=== PATIENT | female | born 1935 | race Caucasian/White ===

== ENCOUNTER → 2016-11-09 | Outpatient (CLI) | payer MEDICARE, BC ==
[~2016-11-09] MED LIST: 00186-0372-20 IH; ADVAIR 100/28 DISKU1 IH; ADVAIR 100/28 DISKUS IH; ALEVE 220MG220 MG PO; ALLEGRA 180MG180 MG PO; ALLEGRA180 MG PO; APRESOLINE 25MG25 MG PO; ARMOUR THYROID120 MG PO; ASPIRIN 32325 MG/TAB PO; ASPIRIN 81M81 MG/TA2 PO; ASPIRIN E.C. 8181 MG PO; ATARAX 25MG25 MG/TAB PO; B COMPLEX VITAMIN; CLEOCIN HCL300 MG PO; CLINDAMYCIN HC300 MG PO; CLONAZEPAM PO; CYMBALTA 30MG30 MG PO; CYTOMEL 2525 MCG/TAB PO; CYTOMEL25 MCG PO; DEXILANT60 MG PO; DOXYCYCLINE 10100 MG PO; ESTRACE 1MG1 MG/TAB PO; FEXOFENADINE H180 MG PO; FLONASE NASAL S16 GM NS; FLONASE0.05 MG/AC NS; FLONASEALLERGY NS; GINKO; GLUCOSAMINE; GLUCOSAMINE PO; GLUCOSAMINE SU500 M2 PO; GLUCOSAMINE500 M1 PO; GLUCOSAMINE500 M2 PO; KLONOPIN 0.5MG0.5 MG PO; KLONOPIN WAFE0.25 MG PO; KLONOPIN WAFER0.5 MG PO; LIPITOR 80MG80 MG PO; MASON NATURAL1000 M1 PO; METOPROLOL SUCC50 M2 PO; MIRALAX PA17 GM/Dose PO; MUCINEX 60600 MG/TAB PO; MULTI VITAMINS1 TAB PO; MULTIPLE VITAMI1 CAP PO; MULTIVITAMIN FO1 CAP PO; MVI; PLAVIX 75MG TAB75 MG PO; PREDNISONE20 MG PO; PREMARIN .3MG0.3 MG PO; PREMARIN 0.60.625 MG PO; PREMPRO 0.625/21 TAB PO; PREVACID 30MG30 M1 PO; PREVACID 30MG30 MG PO; PREVACID SOLUTA30 M2; PROBIOTIC-MAJOR PO; PROTONIX 40MG T40 MG PO; PROVENTIL0.09 MG/A1 IH; PYCNOGENOL; PYCNOGENOL PO; REFRESH PM OP; REMERON 15M15 MG/TA1; REMERON 15M15 MG/TA1 PO; REMERON 15M15 MG/TAB PO; REMERON SOLTAB15 MG PO; REMERON15 MG PO; RT ADVAIR 128 DISKUS; RT ADVAIR 128 DISKUS IH; SINGULAIR 110 MG/TAB PO; SINGULAIR10 MG PO; ST. JOSEPH81 M1 PO; SYNTHROID0.075 MG/T PO; SYNTHROID0.3 MG PO; SYSTANE LUBRICAN5 ML OP; TETRACYCLINE H500 MG PO; THYROID; THYROID PO; TOPROL XL 25MG25 MG PO; TOPROL XL 50MG50 MG PO; TOPROL XL100 MG PO; TOPROL XL25 MG PO; UBIQUINOL50 MG PO; VENTOLIN0.09 MG IH; VITAMIN B-6100 MG PO; VITAMIN D31000 IU PO; XOPENEX HF0.045 MG/A IH; ZYRTEC 10MG10 MG PO; [UNRECOGNIZED DRUG - OTHER]; [UNRECOGNIZED DRUG - OTHER]; [UNRECOGNIZED DRUG - OTHER]; [UNRECOGNIZED DRUG - OTHER] PO; fish oil; vitamin d
== END ==
LOC: COL.VAS 07:49
DX: G31.9 Degenerative disease of nervous system, unspecified (principal); I77.89 Other specified disorders of arteries and arterioles; R42 Dizziness and giddiness; R55 Syncope and collapse
CPT/HCPCS: A9585

== ENCOUNTER 2017-01-31 11:57 | Emergency (ER) | payer MEDICARE, BC ==
[~2017-01-31] VITALS: Ht 154.9 cm; Wt 65.0 kg
[~2017-01-31 11:57] MED LIST changes: -00186-0372-20 IH; -ASPIRIN E.C. 8181 MG PO; -FLONASEALLERGY NS; -KLONOPIN WAFE0.25 MG PO; -LIPITOR 80MG80 MG PO; -PLAVIX 75MG TAB75 MG PO; -XOPENEX HF0.045 MG/A IH
[2017-01-31 11:59] VITALS: TEMP 97.8
[2017-01-31] MEDS ORDERED: ASPIRIN E.C. 8181 MG PO (12:26)
[2017-01-31] MEDS ORDERED: LIPITOR 80MG80 MG PO (12:27)
[2017-01-31] MEDS ORDERED: TOPROL XL100 MG PO (12:27)
[2017-01-31] MEDS ORDERED: PLAVIX 75MG TAB75 MG PO (12:27)
[2017-01-31] MEDS ORDERED: 00186-0372-20 IH (12:28)
[2017-01-31] MEDS ORDERED: KLONOPIN WAFE0.25 MG PO (12:29)
[2017-01-31] MEDS ORDERED: CYMBALTA 30MG30 MG PO (12:31)
[2017-01-31] MEDS ORDERED: FLONASEALLERGY NS (12:31)
[2017-01-31 12:32] LABS: BASO # 0.1 (0.0-0.2); EOS # 0.5 (0.0-0.7); EOS % 5.2 % (0-4.0); GRAN # 5.4 (1.4-6.5); GRAN % 57.9 % (42.2-75.2); HEMATOCRIT 37.3 % (37.0-47.0); HEMOGLOBIN 12.8 g/dl (12.5-16.0); LYMPH # 2.2 (1.2-3.4); LYMPH % 23.6 % (20.0-51.0); MEAN CELL VOLUME 83 fl (80.0-100.0); MEAN CORPUSCULAR HEMOGLOBIN 29 pg (27.0-31.0); MEAN CORPUSCULAR HGB CONC 34 g/dl (33.0-37.0); MEAN PLATELET VOLUME 9.1 fl (7.4-10.4); MONO # 1.1 (0.1-0.6); MONO % 11.9 % (1.7-9.3); PLATELET COUNT 360 K/mm3 (130-400); RED BLOOD COUNT 4.47 M/mm3 (4.10-5.30); REDCELL DISTRIBUTION WIDTH-CV 13.8 % (11.5-14.5); WHITE BLOOD COUNT 9.4 K/mm3 (4.8-10.8)
[2017-01-31] MEDS ORDERED: XOPENEX HF0.045 MG/A IH (12:33)
[2017-01-31 12:55] LABS: PROTHROMBIN TIME 11.2 SECONDS (9.7-12.8)
[2017-01-31] MEDS ORDERED: REMERON 15M15 MG/TA1 PO (13:01)
[2017-01-31] MEDS ORDERED: SYNTHROID0.075 MG/T PO (13:01)
[2017-01-31] MEDS ORDERED: SINGULAIR 110 MG/TAB PO (13:02)
[2017-01-31] MEDS ORDERED: PROTONIX 40MG T40 MG PO (13:02)
[2017-01-31] MEDS ORDERED: PROVENTIL0.09 MG/A1 IH (13:03)
[2017-01-31 13:14] LABS: ADJUSTED CALCIUM 9.1 mg/dL (8.4-10.2); BILIRUBIN,TOTAL 0.6 mg/dL (0.0-1.0); CALCIUM 9.1 mg/dL (8.4-10.2); CREATININE, serum 0.71 mg/dL (0.52-1.25); POTASSIUM 4.6 mmol/L (3.4-5.0); TOTAL PROTEIN 6.6 gm/dL (6.4-8.2)
[2017-01-31 13:15] LABS: PARTIAL THROMBOPLASTIN TIME 33.8 SECONDS (26.0-37.0)
[2017-01-31 13:32] LABS: TROPONIN-I 1.51 ng/mL (0.000-0.034)
[2017-01-31 18:30] VITALS: BP 114/59; PULSE 61
== END 2017-01-31 18:33 | disposition short-term general hospital (02) ==
LOC: COL.ER 11:57
PROVIDERS: Emergency Medicine
DX: I25.10 Atherosclerotic heart disease of native coronary artery without angina pectoris (principal); I25.2 Old myocardial infarction; R55 Syncope and collapse; J45.909 Unspecified asthma, uncomplicated; I10 Essential (primary) hypertension; E03.9 Hypothyroidism, unspecified; Z90.49 Acquired absence of other specified parts of digestive tract; Z90.710 Acquired absence of both cervix and uterus; Z95.828 Presence of other vascular implants and grafts; Z79.82 Long term (current) use of aspirin

== ENCOUNTER 2017-02-10 20:23 | Emergency (ER) | payer MEDICARE, BC ==
[~2017-02-10] VITALS: Ht 154.9 cm; Wt 63.2 kg
[~2017-02-10 20:23] MED LIST changes: +00186-0372-20 IH; +ASPIRIN E.C. 8181 MG PO; +FLONASEALLERGY NS; +KLONOPIN WAFE0.25 MG PO; +LIPITOR 80MG80 MG PO; +PLAVIX 75MG TAB75 MG PO; +XOPENEX HF0.045 MG/A IH
[2017-02-10 20:25] VITALS: BP 179/75; TEMP 97.5
[2017-02-10 21:04] LABS: BASO % 0.5 % (0.0-2.0); EOS # 0.3 (0.0-0.7); EOS % 3.4 % (0-4.0); GRAN # 6.3 (1.4-6.5); GRAN % 72.4 % (42.2-75.2); HEMATOCRIT 37.3 % (37.0-47.0); HEMOGLOBIN 12.4 g/dl (12.5-16.0); LYMPH # 1.1 (1.2-3.4); LYMPH % 13.1 % (20.0-51.0); MEAN CELL VOLUME 84 fl (80.0-100.0); MEAN CORPUSCULAR HEMOGLOBIN 28 pg (27.0-31.0); MEAN CORPUSCULAR HGB CONC 33 g/dl (33.0-37.0); MEAN PLATELET VOLUME 8.9 fl (7.4-10.4); MONO # 0.9 (0.1-0.6); MONO % 10.3 % (1.7-9.3); PLATELET COUNT 319 K/mm3 (130-400); RED BLOOD COUNT 4.45 M/mm3 (4.10-5.30); REDCELL DISTRIBUTION WIDTH-CV 13.5 % (11.5-14.5); WHITE BLOOD COUNT 8.7 K/mm3 (4.8-10.8)
[2017-02-10] MEDS ORDERED: PREDNISONE20 MG PO (21:40)
[2017-02-10] MEDS ORDERED: PEPCID 20MG TAB20 MG PO (21:40)
[2017-02-10 21:55] VITALS: PULSE 70
== END 2017-02-10 21:56 | disposition home or self-care (01) ==
LOC: COL.ER 20:23
PROVIDERS: Emergency Medicine
DX: L50.9 Urticaria, unspecified (principal); L30.9 Dermatitis, unspecified; I25.10 Atherosclerotic heart disease of native coronary artery without angina pectoris; I25.2 Old myocardial infarction; J45.909 Unspecified asthma, uncomplicated; K21.9 Gastro-esophageal reflux disease without esophagitis; E03.9 Hypothyroidism, unspecified; Z79.82 Long term (current) use of aspirin
CPT/HCPCS: J1200; J2930; J7050; J7512

== ENCOUNTER 2017-05-03 15:24 | Outpatient (RCR) | payer MEDICARE, BC ==
[~2017-05-03 15:24] MED LIST changes: +PEPCID 20MG TAB20 MG PO
== END 2017-05-04 | disposition home or self-care (01) ==
LOC: COL.CR
DX: I21.3 ST elevation (STEMI) myocardial infarction of unspecified site (principal); Z95.5 Presence of coronary angioplasty implant and graft

== ENCOUNTER → 2017-10-04 | Outpatient (CLI) | payer MEDICARE, BC | LOC: COL.VAS 11:05 | DX: M71.22 Synovial cyst of popliteal space [Baker], left knee (principal); M79.89 Other specified soft tissue disorders ==

== ENCOUNTER 2017-12-25 15:07 | Outpatient (RCR) | payer SELFPAY | END 2018-01-02 | disposition home or self-care (01) | LOC: COL.CR | DX: Z02.9 Encounter for administrative examinations, unspecified (principal) ==

== ENCOUNTER 2018-03-02 13:44 | Outpatient (RCR) | payer SELFPAY | END 2018-04-03 | disposition home or self-care (01) | LOC: COL.CR | DX: Z02.9 Encounter for administrative examinations, unspecified (principal) ==

== ENCOUNTER 2018-05-17 12:44 | Day surgery (SDC) | payer MEDICARE, BC ==
[~2018-05-17] VITALS: Ht 155 cm; Wt 67.6 kg
[2018-05-17] VITALS (11 sets, daily range): BP systolic 116–143; BP diastolic 62–80; PULSE 58–76; TEMP 97.6–98.4
[2018-05-17 13:14] LABS: HEMATOCRIT 37.7 % (37.0-47.0); HEMOGLOBIN 12.4 g/dl (12.5-16.0); MEAN CELL VOLUME 83 fl (80.0-100.0); MEAN CORPUSCULAR HEMOGLOBIN 27 pg (27.0-31.0); MEAN CORPUSCULAR HGB CONC 33 g/dl (33.0-37.0); MEAN PLATELET VOLUME 8.4 fl (7.4-10.4); PLATELET COUNT 324 K/mm3 (130-400); RED BLOOD COUNT 4.55 M/mm3 (4.10-5.30); REDCELL DISTRIBUTION WIDTH-CV 14.7 % (11.5-14.5)
[2018-05-17 13:19] LABS: INR 1.1 (0.8-3.0); PROTHROMBIN TIME 12.1 SECONDS (9.7-12.8)
[2018-05-17] MEDS ORDERED: IMDUR 30MG30 MG/TAB PO (13:23)
[2018-05-17 13:33] LABS: CALCIUM 9.5 mg/dL (8.4-10.2); CREATININE, serum 0.67 mg/dL (0.52-1.25); POTASSIUM 4.3 mmol/L (3.4-5.0)
[2018-05-17] MEDS ORDERED: ISOSORBIDE MON120 MG PO (15:17)
[2018-05-17] MEDS ORDERED: TOPROL XL 50MG50 MG PO (15:38)
== END 2018-05-17 19:38 | disposition home or self-care (01) ==
LOC: COL.CAR 12:44
PROVIDERS: Internal Medicine Cardiovascular Disease
DX: I25.10 Atherosclerotic heart disease of native coronary artery without angina pectoris (principal); I10 Essential (primary) hypertension; I34.0 Nonrheumatic mitral (valve) insufficiency; I25.2 Old myocardial infarction; D64.9 Anemia, unspecified; J45.909 Unspecified asthma, uncomplicated; E03.9 Hypothyroidism, unspecified; K58.9 Irritable bowel syndrome, unspecified; G62.9 Polyneuropathy, unspecified; G25.81 Restless legs syndrome; B06.9 Rubella without complication; Z90.710 Acquired absence of both cervix and uterus; Z90.49 Acquired absence of other specified parts of digestive tract; Z88.0 Allergy status to penicillin; Z88.2 Allergy status to sulfonamides; Z91.040 Latex allergy status; Z91.038 Other insect allergy status; Z88.8 Allergy status to other drugs, medicaments and biological substances; Z79.82 Long term (current) use of aspirin; Z79.02 Long term (current) use of antithrombotics/antiplatelets; Z79.51 Long term (current) use of inhaled steroids; Z82.49 Family history of ischemic heart disease and other diseases of the circulatory system; Z83.3 Family history of diabetes mellitus; Z82.61 Family history of arthritis; Z82.5 Family history of asthma and other chronic lower respiratory diseases
CPT/HCPCS: J0153; J1644; J3010; Q9967

== ENCOUNTER 2018-06-20 14:15 | Outpatient (RCR) | payer SELFPAY ==
[~2018-06-20 14:15] MED LIST changes: +IMDUR 30MG30 MG/TAB PO; +ISOSORBIDE MON120 MG PO
== END 2018-07-08 | disposition home or self-care (01) ==
LOC: COL.CR
DX: Z02.89 Encounter for other administrative examinations (principal)

== ENCOUNTER 2018-11-14 14:59 | Outpatient (RCR) | payer SELFPAY | END 2018-11-18 | disposition home or self-care (01) | LOC: COL.CR | DX: Z02.89 Encounter for other administrative examinations (principal) ==

== ENCOUNTER 2019-01-09 14:59 | Outpatient (RCR) | payer SELFPAY | END 2019-02-17 | disposition home or self-care (01) | LOC: COL.CR | DX: Z02.89 Encounter for other administrative examinations (principal) ==

== ENCOUNTER 2019-05-29 15:20 | Outpatient (RCR) | payer SELFPAY | END 2019-06-09 | disposition home or self-care (01) | LOC: COL.CR | DX: Z02.89 Encounter for other administrative examinations (principal) ==

== ENCOUNTER → 2019-06-27 | Outpatient (CLI) | payer MEDICARE, BC | LOC: MC.RAD 11:00 | DX: Z12.31 Encounter for screening mammogram for malignant neoplasm of breast (principal) ==

== ENCOUNTER → 2019-09-06 | Outpatient (CLI) | payer MEDICARE, BC | LOC: COL.RAD 08:30 | DX: K44.9 Diaphragmatic hernia without obstruction or gangrene (principal); M47.814 Spondylosis without myelopathy or radiculopathy, thoracic region; M41.84 Other forms of scoliosis, thoracic region; M43.8X4 Other specified deforming dorsopathies, thoracic region ==

== ENCOUNTER 2020-02-03 13:27 | Inpatient (IN) | payer MEDICARE, BC ==
[~2020-02-03] VITALS: Ht 154.9 cm; Wt 69.1 kg
[2020-02-03 14:22] LABS: INR 1.1 (0.8-3.0); PROTHROMBIN TIME 12.8 SECONDS (9.7-12.8)
[2020-02-03 14:25] LABS: PARTIAL THROMBOPLASTIN TIME 31.3 SECONDS (26.0-37.0)
[2020-02-03 14:27] LABS: ALANINE AMINOTRANSFERASE 24 U/L (4-34); ALBUMIN 4.2 gm/dL (3.5-5.0); ALKALINE PHOSPHATASE 63 U/L (50-136); ANION GAP 10 mmol/L (7-16); AST,SGOT 35 U/L (15-37); BILIRUBIN,TOTAL 0.3 mg/dL (0.0-1.0); BLOOD UREA NITROGEN 61 mg/dL (7-17); CALCIUM 8.9 mg/dL (8.4-10.2); CARBON DIOXIDE 17 mmol/L (22-30); CHLORIDE 105 mmol/L (98-107); CREATININE, serum 0.57 (0.52-1.25); GLUCOSE 116 mg/dL (74-106); LIPASE 208 U/L (23-300); POTASSIUM 5.3 mmol/L (3.4-5.0); SODIUM 133 mmol/L (137-145); TOTAL PROTEIN 6.6 gm/dL (6.4-8.2)
[2020-02-03 14:49] LABS: TROPONIN-I < 0.012 ng/mL (0.000-0.035)
[2020-02-03 14:52] LABS: BASO # 0.1 (0.0-0.2); BASO % 0.4 % (0.0-2.0); EOS % 0.2 % (0-4.0); GRAN # 10.2 (1.4-6.5); GRAN % 85.5 % (42.2-75.2); LYMPH # 0.8 (1.2-3.4); LYMPH % 7.1 % (20.0-51.0); MEAN CELL VOLUME 87 fl (80.0-100.0); MEAN CORPUSCULAR HEMOGLOBIN 29 pg (27.0-31.0); MEAN CORPUSCULAR HGB CONC 33 g/dl (33.0-37.0); MEAN PLATELET VOLUME 9.6 fl (7.4-10.4); MONO # 0.8 (0.1-0.6); MONO % 6.4 % (1.7-9.3); PLATELET COUNT 331 K/mm3 (130-400); RED BLOOD COUNT 4.19 M/mm3 (4.10-5.30); REDCELL DISTRIBUTION WIDTH-CV 15.6 % (11.5-14.5)
[2020-02-03 14:53] LABS: HEMATOCRIT 36.4 % (37.0-47.0)
[2020-02-03 15:54] LABS: COLLECTION METHOD CLEAN CATCH
[2020-02-03 16:01] LABS: PH 6 (5-8); SQUAMOUS EPITHELIAL 0-2 /hpf; URINE APPEARANCE Clear; URINE BACTERIA None Seen /hpf; URINE BILIRUBIN Negative (NEGATIVE); URINE BLOOD Negative (NEGATIVE); URINE COLOR Yellow; URINE GLUCOSE Negative (NEGATIVE); URINE KETONE Negative (NEGATIVE); URINE LEUKOCYTE ESTERASE Negative (NEGATIVE); URINE NITRATE Negative (NEGATIVE); URINE PROTEIN(semi-quant) Negative (NEGATIVE); URINE RBC None Seen /hpf; URINE UROBILINOGEN Negative (NEGATIVE)
[2020-02-03 19:52] VITALS: BP 123/56; PULSE 81; TEMP 97.7
[2020-02-04] VITALS (11 sets, daily range): BP systolic 92–130; BP diastolic 43–61; PULSE 70–82; TEMP 97.3–98.5
[2020-02-04 09:05] LABS: BASO # 0.1 (0.0-0.2); BASO % 0.6 % (0.0-2.0); EOS # 0.2 (0.0-0.7); EOS % 1.6 % (0-4.0); GRAN # 6.7 (1.4-6.5); GRAN % 60.8 % (42.2-75.2); HEMOGLOBIN 10.2 g/dl (12.5-16.0); LYMPH # 2.8 (1.2-3.4); LYMPH % 25.7 % (20.0-51.0); MEAN CELL VOLUME 90 fl (80.0-100.0); MEAN CORPUSCULAR HEMOGLOBIN 29 pg (27.0-31.0); MEAN CORPUSCULAR HGB CONC 32 g/dl (33.0-37.0); MEAN PLATELET VOLUME 9.6 fl (7.4-10.4); MONO # 1.2 (0.1-0.6); MONO % 10.9 % (1.7-9.3); PLATELET COUNT 297 K/mm3 (130-400); RED BLOOD COUNT 3.51 M/mm3 (4.10-5.30); REDCELL DISTRIBUTION WIDTH-CV 16.1 % (11.5-14.5)
[2020-02-04 09:08] LABS: HEMATOCRIT 31.6 % (37.0-47.0)
[2020-02-04 09:20] LABS: CALCIUM 8.3 mg/dL (8.4-10.2); CREATININE, serum 0.58 (0.52-1.25)
[2020-02-04 18:36] LABS: HEMATOCRIT 25.5 % (37.0-47.0); HEMOGLOBIN 8.2 g/dl (12.5-16.0)
[2020-02-05] VITALS (11 sets, daily range): BP systolic 100–123; BP diastolic 32–52; PULSE 50–91; TEMP 97.3–98.3
[2020-02-05 07:21] LABS: BASO # 0.1 (0.0-0.2); BASO % 0.6 % (0.0-2.0); EOS # 0.2 (0.0-0.7); EOS % 2.4 % (0-4.0); GRAN # 6.1 (1.4-6.5); GRAN % 72.5 % (42.2-75.2); HEMATOCRIT 26.7 % (37.0-47.0); HEMOGLOBIN 8.5 g/dl (12.5-16.0); LYMPH # 1.4 (1.2-3.4); LYMPH % 16.3 % (20.0-51.0); MEAN CELL VOLUME 90 fl (80.0-100.0); MEAN CORPUSCULAR HEMOGLOBIN 29 pg (27.0-31.0); MEAN CORPUSCULAR HGB CONC 32 g/dl (33.0-37.0); MEAN PLATELET VOLUME 9.2 fl (7.4-10.4); MONO # 0.6 (0.1-0.6); MONO % 7.7 % (1.7-9.3); PLATELET COUNT 240 K/mm3 (130-400); RED BLOOD COUNT 2.98 M/mm3 (4.10-5.30); REDCELL DISTRIBUTION WIDTH-CV 15.9 % (11.5-14.5)
[2020-02-05 07:38] LABS: CALCIUM 8.3 mg/dL (8.4-10.2); CREATININE, serum 0.59 (0.52-1.25); POTASSIUM 3.7 mmol/L (3.4-5.0)
[2020-02-05 17:48] LABS: HEMATOCRIT 23.4 % (37.0-47.0); HEMOGLOBIN 7.5 g/dl (12.5-16.0)
[2020-02-06 03:15] VITALS: BP 115/52; PULSE 71; TEMP 98
[2020-02-06 07:32] VITALS: BP 135/54; PULSE 77; TEMP 98.2
[2020-02-06 08:23] LABS: BASO # 0.1 (0.0-0.2); BASO % 0.8 % (0.0-2.0); EOS # 0.2 (0.0-0.7); EOS % 3.9 % (0-4.0); GRAN % 64.7 % (42.2-75.2); LYMPH # 1.3 (1.2-3.4); LYMPH % 20.1 % (20.0-51.0); MEAN CELL VOLUME 89 fl (80.0-100.0); MEAN CORPUSCULAR HGB CONC 32 g/dl (33.0-37.0); MEAN PLATELET VOLUME 9.4 fl (7.4-10.4); MONO # 0.6 (0.1-0.6); PLATELET COUNT 210 K/mm3 (130-400); RED BLOOD COUNT 2.76 M/mm3 (4.10-5.30); REDCELL DISTRIBUTION WIDTH-CV 15.9 % (11.5-14.5)
[2020-02-06 08:33] LABS: HEMATOCRIT 24.5 % (37.0-47.0); HEMOGLOBIN 7.9 g/dl (12.5-16.0); MEAN CORPUSCULAR HEMOGLOBIN 29 pg (27.0-31.0)
[2020-02-06 08:47] LABS: CALCIUM 8.2 mg/dL (8.4-10.2); CREATININE, serum 0.72 (0.52-1.25); POTASSIUM 3.9 mmol/L (3.4-5.0)
[2020-02-06 13:15] VITALS: BP 136/81; PULSE 70; TEMP 97.3
== END 2020-02-06 13:00 | disposition home or self-care (01) | DRG 378 ==
LOC: COL.ER 13:27 → SURG 16:15
PROVIDERS: Emergency Medicine; Internal Medicine Gastroenterology; Physician Assistant; ADMIT Hospitalist
PROC: 0DJ08ZZ Inspection of Upper Intestinal Tract, Via Natural or Artificial Opening Endoscopic (ICD-10-PCS; principal; 2020-02-04 15:30)
PROC: 0DBK8ZZ Excision of Ascending Colon, Via Natural or Artificial Opening Endoscopic (ICD-10-PCS; 2020-02-05)
PROC: 0DBL8ZZ Excision of Transverse Colon, Via Natural or Artificial Opening Endoscopic (ICD-10-PCS; 2020-02-05)
DX: K25.4 Chronic or unspecified gastric ulcer with hemorrhage (principal); D62 Acute posthemorrhagic anemia; E87.2 Acidosis; E87.5 Hyperkalemia; E87.8 Other disorders of electrolyte and fluid balance, not elsewhere classified; I25.10 Atherosclerotic heart disease of native coronary artery without angina pectoris; M48.00 Spinal stenosis, site unspecified; J45.909 Unspecified asthma, uncomplicated; I87.2 Venous insufficiency (chronic) (peripheral); E78.5 Hyperlipidemia, unspecified; E03.9 Hypothyroidism, unspecified; K21.9 Gastro-esophageal reflux disease without esophagitis; F32.9 Major depressive disorder, single episode, unspecified; J44.9 Chronic obstructive pulmonary disease, unspecified; K57.30 Diverticulosis of large intestine without perforation or abscess without bleeding; K29.70 Gastritis, unspecified, without bleeding; K63.5 Polyp of colon; K44.9 Diaphragmatic hernia without obstruction or gangrene; Z98.1 Arthrodesis status; Z90.710 Acquired absence of both cervix and uterus; Z90.49 Acquired absence of other specified parts of digestive tract; Z95.818 Presence of other cardiac implants and grafts; Z79.82 Long term (current) use of aspirin
CPT/HCPCS: 99222-AI; 99232-AI; 99239; C9113; J2405; J2704; J7030; Q9967

== ENCOUNTER → 2020-04-14 | Outpatient (CLI) | payer MEDICARE, BC | LOC: COL.RAD 14:15 | DX: M48.07 Spinal stenosis, lumbosacral region (principal); G62.9 Polyneuropathy, unspecified; M50.30 Other cervical disc degeneration, unspecified cervical region; M81.0 Age-related osteoporosis without current pathological fracture; M41.86 Other forms of scoliosis, lumbar region; Z98.1 Arthrodesis status ==

== ENCOUNTER → 2020-06-23 | Outpatient (CLI) | payer MEDICARE, BC | LOC: MHCPAIN 13:57 | DX: M47.817 Spondylosis without myelopathy or radiculopathy, lumbosacral region (principal); M96.1 Postlaminectomy syndrome, not elsewhere classified; M54.16 Radiculopathy, lumbar region; M53.3 Sacrococcygeal disorders, not elsewhere classified; G89.29 Other chronic pain | CPT/HCPCS: G0463 ==

== ENCOUNTER → 2020-07-15 | Outpatient (CLI) | payer MEDICARE, BC ==
[~2020-07-15] MED LIST changes: +COZAAR 50MG50 MG/TAB PO; +DULCOLAX STOOL100 MG PO; +LEADER CLE17 GM/Dose PO; +NEURONTIN300 MG/CAP PO; +NORCO 325 MG-7.1 TAB PO; +PERCOCET 325 MG1 TA2 PO; +ROXICODONE 55 MG/TAB PO; +SYNTHROID0.05 MG/TA PO; +TYLENOL 325MG325 MG PO; +VTAMINC250TA PO
== END ==
LOC: COL.RAD 18:22
DX: M50.30 Other cervical disc degeneration, unspecified cervical region (principal); G95.19 Other vascular myelopathies; G62.9 Polyneuropathy, unspecified; R26.89 Other abnormalities of gait and mobility

== ENCOUNTER → 2020-08-03 | Outpatient (CLI) | payer MEDICARE, BC | LOC: MHCPAIN 11:25 | DX: M47.817 Spondylosis without myelopathy or radiculopathy, lumbosacral region (principal); M96.1 Postlaminectomy syndrome, not elsewhere classified; M54.16 Radiculopathy, lumbar region | CPT/HCPCS: G0463; J1100; Q9967 ==

== ENCOUNTER → 2020-08-19 | Outpatient (CLI) | payer MEDICARE, BC | LOC: MHCPAIN 13:36 | DX: M47.816 Spondylosis without myelopathy or radiculopathy, lumbar region (principal); M54.5 Low back pain; M96.1 Postlaminectomy syndrome, not elsewhere classified; G89.29 Other chronic pain | CPT/HCPCS: G0463 ==

== ENCOUNTER 2020-08-20 14:45 | Outpatient (RCR) | payer MEDICARE, BC ==
[~2020-08-20 14:45] MED LIST changes: -COZAAR 50MG50 MG/TAB PO; -DULCOLAX STOOL100 MG PO; -LEADER CLE17 GM/Dose PO; -NEURONTIN300 MG/CAP PO; -NORCO 325 MG-7.1 TAB PO; -PERCOCET 325 MG1 TA2 PO; -ROXICODONE 55 MG/TAB PO; -SYNTHROID0.05 MG/TA PO; -TYLENOL 325MG325 MG PO; -VTAMINC250TA PO
== END 2020-08-25 | disposition home or self-care (01) ==
LOC: WSPT
DX: G62.9 Polyneuropathy, unspecified (principal); M48.07 Spinal stenosis, lumbosacral region; G95.19 Other vascular myelopathies

== ENCOUNTER → 2020-08-27 | Outpatient (CLI) | payer MEDICARE, BC ==
[~2020-08-27] MED LIST changes: +COZAAR 50MG50 MG/TAB PO; +DULCOLAX STOOL100 MG PO; +LEADER CLE17 GM/Dose PO; +NEURONTIN300 MG/CAP PO; +NORCO 325 MG-7.1 TAB PO; +PERCOCET 325 MG1 TA2 PO; +ROXICODONE 55 MG/TAB PO; +SYNTHROID0.05 MG/TA PO; +TYLENOL 325MG325 MG PO; +VTAMINC250TA PO
== END ==
LOC: MHCPAIN 08:25
DX: M47.817 Spondylosis without myelopathy or radiculopathy, lumbosacral region (principal); M54.16 Radiculopathy, lumbar region
CPT/HCPCS: J1100; Q9967

== ENCOUNTER → 2020-09-07 | Outpatient (CLI) | payer MEDICARE, BC | LOC: MHCPAIN 10:19 | DX: M47.816 Spondylosis without myelopathy or radiculopathy, lumbar region (principal); M96.1 Postlaminectomy syndrome, not elsewhere classified; M54.16 Radiculopathy, lumbar region; G89.29 Other chronic pain | CPT/HCPCS: G0463 ==

== ENCOUNTER → 2020-09-22 | Outpatient (CLI) | payer MEDICARE, BC | LOC: MHCPAIN 11:17 | DX: M47.816 Spondylosis without myelopathy or radiculopathy, lumbar region (principal); M96.1 Postlaminectomy syndrome, not elsewhere classified; M53.3 Sacrococcygeal disorders, not elsewhere classified; G89.29 Other chronic pain | CPT/HCPCS: G0463 ==

== ENCOUNTER 2020-11-05 09:00 | Outpatient (RCR) | payer MEDICARE, BC ==
[~2020-11-05 09:00] MED LIST changes: -COZAAR 50MG50 MG/TAB PO; -DULCOLAX STOOL100 MG PO; -LEADER CLE17 GM/Dose PO; -NEURONTIN300 MG/CAP PO; -NORCO 325 MG-7.1 TAB PO; -PERCOCET 325 MG1 TA2 PO; -ROXICODONE 55 MG/TAB PO; -SYNTHROID0.05 MG/TA PO; -TYLENOL 325MG325 MG PO; -VTAMINC250TA PO
== END 2020-11-17 08:40 | disposition home or self-care (01) ==
LOC: WSPT 09:00
DX: M48.00 Spinal stenosis, site unspecified (principal); G62.9 Polyneuropathy, unspecified

== ENCOUNTER 2020-12-10 05:00 | Day surgery (SDC) | payer MEDICARE, BC ==
[~2020-12-10] VITALS: Ht 154.9 cm; Wt 68.2 kg
[2020-12-10] VITALS (12 sets, daily range): BP systolic 124–144; BP diastolic 52–115; PULSE 72–78; TEMP 97.6–98.1
[2020-12-10] MEDS ORDERED: IMDUR 30MG30 MG/TAB PO (05:58)
[2020-12-10] MEDS ORDERED: SYNTHROID0.05 MG/TA PO (05:59)
[2020-12-10] MEDS ORDERED: TOPROL XL 25MG25 MG PO (06:00)
[2020-12-10] MEDS ORDERED: COZAAR 50MG50 MG/TAB PO (06:01)
[2020-12-10] MEDS ORDERED: NEURONTIN300 MG/CAP PO (06:02)
[2020-12-10] MEDS ORDERED: VTAMINC250TA PO (06:03)
--- NOTE | 2020-12-10 10:37 | NUR ---
PT TO ROOM 332 PER BED WITH REPORT FROM EBONY NORRIS PACU @1010. PT IS DROWSEY BUT AWAKENS TO VERBAL. VSS, LUNGS CTA, BOWEL SOUNDS PRESENT. LEFT KNEE DRESSING CDI WITH OCCLUSIVE SHANA WRAP OVER INCISION. SCDS PLACED BILATERALLY. PEDAL PULSES PAPABLE BILATERALLY. IV TO PUMP PER ORDERS. DAUGHTER AT BEDSIDE. CALL LIGHT IN REACH.
--- NOTE | 2020-12-10 12:50 | NUR ---
SW completed intake with patient. Patient provides that she lives in [facility] with her spouse Jonah [phone]. Patient states she uses a walker and cane and is independent with ADL's. Patient provides that her PCP is Dr. Edyd, pharmacy is [facility], and states she is able to afford her medications at this time. Patient stated she would like to review the DPOA documenation before making a decision. SW provided documenation and provided SW can assist when ready to complete. Patient states that her plan is to return to her home upon DC. SW will continue to follow. Plan: home with spouse
--- NOTE | 2020-12-10 19:15 | NUR ---
RECEIVED CHANGE OF SHIFT REPORT FROM DAY SHIFT NURSE.
--- NOTE | 2020-12-10 19:44 | NUR ---
DENIES ANY NEEDS AT THIS TIME. IV FLUIDS INFUSING WITH NO PROBLEMS. REPORTS NUMBNESS TO LATERAL LLE D/T HX OF NEUROPATHY, ABLE TO WIGGLE L TOES/FOOT ON COMMAND. DENIES CHEST PAIN/SOA/NAUSEA AT THIS TIME. VISITOR AT BEDSIDE. REPLACE ICE PACK TO L KNEE.
[2020-12-11 04:20] VITALS: BP 140/57; PULSE 64; TEMP 97.4
--- NOTE | 2020-12-11 05:40 | NUR ---
DENIES NEEDS FOR PAIN MEDS AT THIS TIME. IV SITE PATENT, FLUSHES WELL. DENIES CHEST PAIN/SOA/NAUSEA AT THIS TIME. SCD CONTINUES TO BLE. REFRESHED ICE PACK TO R KNEE.
--- NOTE | 2020-12-11 05:46 | NUR ---
GIVEN PRUNE JUICE AT THIS TIME.
--- NOTE | 2020-12-11 06:55 | NUR ---
CHANGE OF SHIFT REPORT GIVEN TO DAY SHIFT NURSES, SOURAV RN AND LUCAS NORRIS.
[2020-12-11] MEDS ORDERED: NORCO 325 MG-7.1 TAB PO (07:12)
[2020-12-11] MEDS ORDERED: ROXICODONE 55 MG/TAB PO (07:12)
--- NOTE | 2020-12-11 07:19 | NUR ---
Report received from JR De La Cruz. Patient resting comfortably in recliner. Call light and bedside table are within reach. Will continue to monitor throughout shift.
[2020-12-11 07:28] VITALS: BP 107/68; PULSE 75; TEMP 98.2
[2020-12-11 11:01] VITALS: BP 103/53; PULSE 65; TEMP 98.8
--- NOTE | 2020-12-11 15:07 | NUR ---
DISCHARGE INSTRUCTIONS REVIEWED WITH PATIENT, QUESTIONS SOLICITED AND ANSWERED. PT LEFT PER WHEEL CHAIR WITH STAFF.
== END 2020-12-11 15:08 | disposition home or self-care (01) ==
LOC: SDCO 05:00 → SURG 10:00 → SDCO 12-11 15:08
DX: M17.12 Unilateral primary osteoarthritis, left knee (principal); I10 Essential (primary) hypertension; I25.10 Atherosclerotic heart disease of native coronary artery without angina pectoris; I25.2 Old myocardial infarction; J45.40 Moderate persistent asthma, uncomplicated; M79.7 Fibromyalgia; K21.9 Gastro-esophageal reflux disease without esophagitis; K44.9 Diaphragmatic hernia without obstruction or gangrene; Z20.822 Contact with and (suspected) exposure to COVID-19; Z79.899 Other long term (current) drug therapy; Z95.818 Presence of other cardiac implants and grafts; Z79.82 Long term (current) use of aspirin; Z79.51 Long term (current) use of inhaled steroids
CPT/HCPCS: OP; A9284; C1713; C1776; J0690; J1100; J2250; J2405; J2704; J3010; J7042; J7120

== ENCOUNTER 2020-12-13 13:42 | Inpatient (IN) | payer MEDICARE, BC ==
[~2020-12-13] VITALS: Ht 154.9 cm; Wt 76.4 kg
[~2020-12-13 13:42] MED LIST changes: +COZAAR 50MG50 MG/TAB PO; +NEURONTIN300 MG/CAP PO; +NORCO 325 MG-7.1 TAB PO; +ROXICODONE 55 MG/TAB PO; +SYNTHROID0.05 MG/TA PO; +VTAMINC250TA PO
[2020-12-13 14:57] LABS: BASO # 0.1 (0.0-0.2); BASO % 0.6 % (0.0-2.0); EOS # 0.2 (0.0-0.7); EOS % 1.7 % (0-4.0); GRAN # 11.3 (1.4-6.5); GRAN % 81.3 % (42.2-75.2); HEMOGLOBIN 10.5 g/dl (12.5-16.0); LYMPH # 0.8 (1.2-3.4); LYMPH % 5.5 % (20.0-51.0); MEAN CELL VOLUME 89 fl (80.0-100.0); MEAN CORPUSCULAR HEMOGLOBIN 30 pg (27.0-31.0); MEAN CORPUSCULAR HGB CONC 33 g/dl (33.0-37.0); MEAN PLATELET VOLUME 9.2 fl (7.4-10.4); MONO # 1.4 (0.1-0.6); MONO % 10.3 % (1.7-9.3); PLATELET COUNT 229 K/mm3 (130-400); RED BLOOD COUNT 3.56 M/mm3 (4.10-5.30); REDCELL DISTRIBUTION WIDTH-CV 13.2 % (11.5-14.5)
[2020-12-13 14:58] LABS: HEMATOCRIT 31.5 % (37.0-47.0)
[2020-12-13 15:11] LABS: ALBUMIN 3.6 gm/dL (3.5-5.0); BILIRUBIN,TOTAL 0.6 mg/dL (0.0-1.0); CALCIUM 8.7 mg/dL (8.4-10.2); CREATININE, serum 0.67 (0.52-1.25); POTASSIUM 4.3 mmol/L (3.4-5.0)
[2020-12-13 21:25] VITALS: BP 115/44; PULSE 87; TEMP 98.7
--- NOTE | 2020-12-13 22:00 | NUR ---
To room 311 via stretcher. Oriented to room and policy. Admission assessment complete. VS stable. A&Ox3. Rating pain to left knee 7/10 on pain scale-described as constant throbbing-percocet given per dr order. Plan of care discussed for this shift to include HS meds/pain control/calling for questions/concerns. Verbalizes understanding/denies needs. Call light in reach/bed alarm on. WIll monitor
[2020-12-14 00:22] VITALS: BP 105/57; PULSE 83; TEMP 97.3
[2020-12-14 03:37] VITALS: BP 126/53; PULSE 88; TEMP 97.5
--- NOTE | 2020-12-14 05:18 | NUR ---
Rested well after receiving percocet for left knee pain. Dressing to left prdw-snfyrets-lljd old drainage. SCDs/TEDs bilat. Fresh ice pack applied. Has had no free water-gatorade only. Denies current needs. Call light in reach. Will monitor.
[2020-12-14 07:27] VITALS: BP 148/94; PULSE 87; TEMP 97.4
[2020-12-14 07:51] LABS: BASO % 0.5 % (0.0-2.0); EOS # 0.4 (0.0-0.7); EOS % 4.7 % (0-4.0); GRAN # 5.6 (1.4-6.5); GRAN % 67.4 % (42.2-75.2); LYMPH # 1.1 (1.2-3.4); LYMPH % 12.8 % (20.0-51.0); MEAN CELL VOLUME 88 fl (80.0-100.0); MEAN CORPUSCULAR HGB CONC 34 g/dl (33.0-37.0); MEAN PLATELET VOLUME 9.7 fl (7.4-10.4); MONO # 1.2 (0.1-0.6); PLATELET COUNT 224 K/mm3 (130-400); RED BLOOD COUNT 3.22 M/mm3 (4.10-5.30); REDCELL DISTRIBUTION WIDTH-CV 13.1 % (11.5-14.5)
[2020-12-14 07:53] LABS: HEMATOCRIT 28.4 % (37.0-47.0); HEMOGLOBIN 9.6 g/dl (12.5-16.0); MEAN CORPUSCULAR HEMOGLOBIN 30 pg (27.0-31.0)
[2020-12-14 08:08] LABS: CALCIUM 8.3 mg/dL (8.4-10.2); CREATININE, serum 0.66 (0.52-1.25)
--- NOTE | 2020-12-14 09:02 | NUR ---
Patient sitting up in bed upon entering the room. Patient had no complaints and stated that she felt, "much better". Patient eating breakfast and tolerating things well PO. Morning medications were administered and assessment was completed. Order for a post void bladder scan was acknowledged. This RN notified the PCT assisgned to this patient that a UA was needed, as was a bladder scan after the patient has voided. UA cup, hat, and biohazard bag were placed inside the patient's bathroom. Bladder scanner was placed outside of patient's room as a reminder. Patient was given a PRN percocet for knee pain r/t replacement. Patient rated her pain as a 4 while laying, but it worsens when she moves.
[2020-12-14 11:25] VITALS: BP 86/51; PULSE 83; TEMP 98.3
--- NOTE | 2020-12-14 14:38 | NUR ---
MELBA met with the patient and her daughter, Mavis (ph#[phone]), to discuss discharge plan. The patient lives in [place] with her , Jonah. She reports independence with ADLs and has a cane and walker. The patient's PCP is Dr. Martin Hart and she receives her medications from [facility]. She reports no difficulties obtaining her meds. The patient does not have a DPOA-HC, but she was interested in obtaining a form. MELBA provided. PT/OT notified MELBA that the patient would benefit from post-acute rehab vs home with home health. MELBA discussed this with the patient and her daughter. The patient reports that she would be interested in post-acute rehab and chose 1) [facility]. MELBA contacted and faxed a referral to Marialuisa at [facility]. MELBA consulted I[facility] Director, Yazmin. Awaiting screens. *Discharge plan: post-acute rehab*
[2020-12-14 15:37] VITALS: BP 144/49; PULSE 101; TEMP 98.3
--- NOTE | 2020-12-14 19:07 | NUR ---
This RN notified the hospitalist that the patient had a 2nd post-void residual of 600. The hospitalist ordered a fisher to be placed. Catheter was placed w/o any complaints of pain or discomfort. Patient stated she, "felt relieved" as she had less pressure on her bladder. 465mL of urine was initially drained from the catheter.
[2020-12-14 20:49] VITALS: BP 109/48; PULSE 90; TEMP 98.9
--- NOTE | 2020-12-14 21:36 | NUR ---
Pt has been good. Daughter was at the bedside earlier. Pain rated 0/10.Vss. Will continue to monitor.
[2020-12-15 01:13] VITALS: BP 132/57; PULSE 93; TEMP 98.9
[2020-12-15 06:38] LABS: MEAN CELL VOLUME 89 fl (80.0-100.0); MEAN CORPUSCULAR HGB CONC 33 g/dl (33.0-37.0); MEAN PLATELET VOLUME 9.4 fl (7.4-10.4); PLATELET COUNT 268 K/mm3 (130-400); RED BLOOD COUNT 3.14 M/mm3 (4.10-5.30); REDCELL DISTRIBUTION WIDTH-CV 13.1 % (11.5-14.5)
[2020-12-15 06:46] LABS: CALCIUM 8.2 mg/dL (8.4-10.2); CREATININE, serum 0.59 (0.52-1.25); HEMATOCRIT 27.8 % (37.0-47.0); HEMOGLOBIN 9.2 g/dl (12.5-16.0); MEAN CORPUSCULAR HEMOGLOBIN 29 pg (27.0-31.0); POTASSIUM 4.1 mmol/L (3.4-5.0)
[2020-12-15 08:03] VITALS: BP 107/52; PULSE 88; TEMP 97.6
--- NOTE | 2020-12-15 08:23 | NUR ---
Marialuisa, at [facility], reports that they will continue to follow the patient's care. They would like to the results of the patient's follow up COVID test and have to have a bed available.
--- NOTE | 2020-12-15 10:56 | NUR ---
First visit from the fish cleaner machine tender. No needs right now.
[2020-12-15 12:07] VITALS: BP 125/73; PULSE 88; TEMP 98.1
--- NOTE | 2020-12-15 14:11 | NUR ---
MELBA attended clinical rounds. The patient has changed her first preference to IPR. The hospitalist is ready to d/c today. MELBA notified [facility] Director, Yazmin. Yazmin reports that they are able to accept the patient today. MELBA updated the patient and her daughter, Mavis. The patient is to discharge today, 12/15, to [facility]. MELBA updated Marialuisa at [facility]. No additional needs at this time.
[2020-12-15] MEDS ORDERED: LEADER CLE17 GM/Dose PO (15:10)
[2020-12-15] MEDS ORDERED: ASPIRIN 32325 MG/TAB PO (15:11)
[2020-12-15] MEDS ORDERED: DULCOLAX STOOL100 MG PO (15:11)
[2020-12-15] MEDS ORDERED: PERCOCET 325 MG1 TA2 PO (15:13)
--- NOTE | 2020-12-15 16:18 | NUR ---
Patient has done well today. Martin was removed per provider's orders. All medications administered and tolerated well. Patient worked with PT/OT without any difficulties reported to this RN. Patient transferred to [facility] for further services.
== END 2020-12-15 16:00 | DRG 189 ==
LOC: COL.ER 13:42 → MEDICAL 18:11
PROVIDERS: Family Medicine; Physician Assistant; Student in an Organized Health Care Education/Training Program; ADMIT Internal Medicine
DX: J96.01 Acute respiratory failure with hypoxia (principal); E87.1 Hypo-osmolality and hyponatremia; J98.11 Atelectasis; J90 Pleural effusion, not elsewhere classified; I87.2 Venous insufficiency (chronic) (peripheral); E03.9 Hypothyroidism, unspecified; I08.1 Rheumatic disorders of both mitral and tricuspid valves; J44.9 Chronic obstructive pulmonary disease, unspecified; Z20.822 Contact with and (suspected) exposure to COVID-19; I25.10 Atherosclerotic heart disease of native coronary artery without angina pectoris; K21.9 Gastro-esophageal reflux disease without esophagitis; I10 Essential (primary) hypertension; K44.9 Diaphragmatic hernia without obstruction or gangrene; I25.2 Old myocardial infarction; M41.9 Scoliosis, unspecified; R53.82 Chronic fatigue, unspecified; F32.9 Major depressive disorder, single episode, unspecified; R33.9 Retention of urine, unspecified; K59.00 Constipation, unspecified; E78.5 Hyperlipidemia, unspecified; R53.81 Other malaise; M17.12 Unilateral primary osteoarthritis, left knee; J45.40 Moderate persistent asthma, uncomplicated; M79.7 Fibromyalgia; Z95.5 Presence of coronary angioplasty implant and graft; Z96.652 Presence of left artificial knee joint; Z90.710 Acquired absence of both cervix and uterus; Z90.49 Acquired absence of other specified parts of digestive tract; Z88.0 Allergy status to penicillin; Z88.2 Allergy status to sulfonamides; Z88.8 Allergy status to other drugs, medicaments and biological substances; Z79.899 Other long term (current) drug therapy; Z91.040 Latex allergy status; Z95.818 Presence of other cardiac implants and grafts; Z79.82 Long term (current) use of aspirin; Z79.51 Long term (current) use of inhaled steroids
CPT/HCPCS: OP; 99223-AI; 99232-AI; 99239; A4314; A9284; C1713; C1776; J0456; J0690; J0696; J1100; J1650; J2250; J2405; J2704; J3010; J7042; J7050; J7120; Q9967

== ENCOUNTER 2020-12-15 13:40 | Inpatient (IN) | payer MEDICARE, BC ==
[~2020-12-15] VITALS: Ht 154.9 cm; Wt 73.0 kg
[2020-12-15] MEDS ORDERED: LEADER CLE17 GM/Dose PO (15:10)
[2020-12-15] MEDS ORDERED: ASPIRIN 32325 MG/TAB PO (15:11)
[2020-12-15] MEDS ORDERED: DULCOLAX STOOL100 MG PO (15:11)
[2020-12-15] MEDS ORDERED: PERCOCET 325 MG1 TA2 PO (15:13)
--- NOTE | 2020-12-15 16:12 | NUR ---
arrived on unit per WC from Medical unit, assisted out of WC and into recliner, per her request, family at bedside
--- NOTE | 2020-12-15 16:50 | NUR ---
admission assessment completed, she has an aquacel dressing to left knee that has small amount drainage, she states it was changed on 12/11 in hospital the day after her surgery, denies needs at this time, is reading a book and daughter at bedside
--- NOTE | 2020-12-15 17:15 | NUR ---
RUDI Martinez has been in to see patient, will order supper
[2020-12-15 17:26] VITALS: BP 151/60; PULSE 85; TEMP 98.4
--- NOTE | 2020-12-15 18:50 | NUR ---
RECEIVED CHANGE OF SHIFT REPORT FROM DAY SHIFT NURSE.
--- NOTE | 2020-12-15 20:00 | NUR ---
DENIES CHEST PAIN/SOA/NAUSEA AT THIS TIME. ENCOURAGED PATIENT TO PERFORM IS INSTRUCTED AND FOOT CIRCLES. TEDS ON ANTONIO, REFUSED SCDS WHEN OFFERED. HAS CONTINUES LATERAL L LEG NEUROPATHY PRIOR TO SURGERY/HOSPITAL STAY, REPORTS IT IS A CHRONIC HEALTH COMPLAINT. ALARMS ON WHEN UP IN CHAIR OR LAYING IN BED. INSTRUCTED PATIENT ON FREE WATER 500ML RESTRICTION, STATED SHE LIKES RED GATORADE. DENIES ANY DISCOMFORT AT THIS TIME.
[2020-12-16 05:34] VITALS: BP 151/69; PULSE 89; TEMP 98.4
--- NOTE | 2020-12-16 06:30 | NUR ---
Report received from JR De La Cruz. Patient is sleeping in bed. Call light and bedside table are within reach. Will continue to monitor patient throughout shift.
--- NOTE | 2020-12-16 07:00 | NUR ---
CHANGE OF SHIFT REPORT GIVEN TO DAY SHIFT NURSE, SOURAV NORRIS.
--- NOTE | 2020-12-16 14:19 | NUR ---
Patient is in room visiting with daughter. All therapies are completed. Call light and bedside table are within reach. will continue to monitor patient throughout shift.
--- NOTE | 2020-12-16 14:25 | NUR ---
Welcomed pt & her daughter to Rehab unit. Explained the rehab process & goals. Complete SW assessment w/ pt. She is alert & oriented & able to communicate her needs & wants. She does wear glasses, has issues w/ hearing & wears bilateral hearing aides, & has her own teeth. She lives w/ her in a 1 story home w/ a basement. There are 3 steps to enter w/ bilateral handrails on the front & a flight of steps to basement w/ handrail on the left. The laundry is in the basement. The bathroom has a walk in shower w/ door, grab bar & hand held shower head. The toilet is standard height. Pt reports she walks w/ a s/cane & independent w/ her self care. She also reported doing her the laundry, on-line shopping, drove, medication management & finance management. She has her own s/cane, r/walker, toilet seat riser, shower chair, & adaptive devices. Pharmacy: [facility] & reports she has no concerns or issues w/ affording her medications. PCP: Dr. Hart. She does not have DPOA paperwork & would like paperwork for it. Pt nor daughter had no questions/concerns at this time about her rehab stay. SW will follow & assist w/ d/c planning.
[2020-12-16 15:42] VITALS: BP 120/86; PULSE 90; TEMP 98.1
--- NOTE | 2020-12-16 20:00 | NUR ---
PATIENT RESTING IN BED. SEE MAR FOR TYLENOL GIVEN FOR LT KNEE PAIN. LEVEL 3/10. TEDS OFF SCD'S ON AT THIS TIME. CALL LIGHT IN REACH BED ALARM SET.
[2020-12-17 04:42] VITALS: BP 142/68; PULSE 84; TEMP 98.6
--- NOTE | 2020-12-17 06:30 | NUR ---
Patient is in bed sleep. Call light and bedside table are within reach. Will continue to monitor patient throughout shift.
[2020-12-17 07:08] LABS: CALCIUM 8.6 mg/dL (8.4-10.2); CREATININE, serum 0.63 (0.52-1.25); POTASSIUM 3.7 mmol/L (3.4-5.0)
--- NOTE | 2020-12-17 08:30 | NUR ---
This nurse changed aqua cell this morning. Wound is clean, dry and intact. Covered wound with a new aqua cell. Patient had good ROM. Denies pain. Pulses present. Patient does have moderate edema and ecchymosis. Instructed patient to elevate and ice.
--- NOTE | 2020-12-17 10:10 | NUR ---
Visited w/ pt, who stated she is doing okay but concerned about the swelling in her left knee (currently has ice). She stated that they took the dressing off & the incision looks good. Told her that we will continue to watch & monitor the knee. Inquired if she had any questions about the team conference notes, which she did not, & feels she is doing better. Did talk to her about doing a pt/family meeting, which she was interested in. Talked about doing on 12/21/20 @ 1:00 pm, so she will talk to her family about this. Also provided her w/ a list of Home health agencies in the [place] area.
--- NOTE | 2020-12-17 11:15 | NUR ---
Patient requested more Tylenol. This nurse suggested giving her something stronger to help with therapy. Patient expressed her apprehension by stating she did not want to be overmedicated with stronger medication. This nurse assured her she would not be overmedicated. Patient agreed.
--- NOTE | 2020-12-17 14:45 | NUR ---
Patient has completed all therapies for the day and is resting comfortably in recliner. Call light and bedside table are within reach.
[2020-12-17 15:02] VITALS: BP 134/64; PULSE 82; TEMP 98
--- NOTE | 2020-12-17 19:40 | NUR ---
SBA ASSIST TO BR WITH WALKER. TOILETING HYGIENE AND TRANSFER PER SELF-CGA WEAR BRIEFS FOR STRESS INCONTINENCE. SEE MAR FOR PERCOCET AND COLACE GIVEN. JERRY HOSE OFF. TO BED. PT ABLE TO LIFT LEGS INTO BED PER SELF. SCD'S ON BILAT. CALL LIGHT IN REACH. BED ALARM SET.
[2020-12-18 05:06] VITALS: BP 166/66; PULSE 78; TEMP 98.6
[2020-12-18 06:44] LABS: CALCIUM 8.7 mg/dL (8.4-10.2); CREATININE, serum 0.67 (0.52-1.25)
--- NOTE | 2020-12-18 08:00 | NUR ---
Patient called nursing staff for assistance going to the bathroom. Patient independent getting out of bed and a standby assist with gait belt and walker to the bathroom. A&Ox4. VSS. Reports pain 5/10 left knee, pain medication given as requested. Patient independent with feeds. No further needs expressed from the patient. Patient ambulated to the recliner. Call light within reach
--- NOTE | 2020-12-18 09:43 | NUR ---
Visited w/ pt. She stated she is feeling pretty good & is very happy w/ having come here because she feels she will be more ready to go home. She did have question about home health & whether they had someone who could help w/ laundry. Explained to her that would fall under private duty caregiver services & starred the agencies on her home health list that could provide that service. She did tell SW that they are leaning towards [facility]. Did inquire if she had spoken to her family about doing a pt/family meeting on 12/21/20, @ 1:00 pm. She had & they are fine w/ this.
[2020-12-18 15:59] VITALS: BP 153/58; PULSE 83; TEMP 98.8
--- NOTE | 2020-12-18 18:03 | NUR ---
Patient had a productive day working with therapy and tolerated well. A&Ox4. VSS. Left leg, warm and swollen, ice applied intermittently throughout the shift. TEDs bilateral legs. Pain medication given when requested. Family at the bedside. Patient sat in the recliner most of the shift, standby assist with gait belt and walker. No further needs expressed from the patient. Call light within reach. Bed alarm on
--- NOTE | 2020-12-18 19:12 | NUR ---
RECEIVED CHANGE OF SHIFT REPORT FROM DAY SHIFT NURSE. BED ALARM ON, CALL LIGHT WITHIN REACH. DENIES ANY NEEDS DURING TIME OF REPORT.
[2020-12-19 05:18] VITALS: BP 128/51; PULSE 79; TEMP 98.4
--- NOTE | 2020-12-19 06:30 | NUR ---
Report received from JR De La Cruz. Patient is sleeping in bed. Bedside table and call light are within reach. Will continue to monitor patient throughout shift.
--- NOTE | 2020-12-19 06:57 | NUR ---
CHANGE OF SHIFT REPORT GIVEN TO DAY SHIFT NURSE, SOURAV NORRIS. BED ALARM ON WHEN IN BED. DENIES CHEST PAIN/SOA/NAUSEA THROUGHOUT NIGHT. UP AMBULATING TO BATHROOM WITH SBA FROM STAFF.
--- NOTE | 2020-12-19 12:10 | NUR ---
Per Dr Veloz, patient can have 100 ml of water/day
--- NOTE | 2020-12-19 12:30 | NUR ---
Patient is resting in recliner. Therapy for today is complete.
[2020-12-19 17:50] VITALS: BP 124/84; PULSE 84; TEMP 98.6
--- NOTE | 2020-12-19 19:08 | NUR ---
RECEIVED CHANGE OF SHIFT REPORT FROM DAY SHIFT NURSE.
--- NOTE | 2020-12-19 20:48 | NUR ---
TOOK SELF OUT OF BATHROOM, WITHOUT CALLING FOR HELP FROM STAFF, SAT IN RECLINER CHAIR. REMINDED PATIENT OF SAFETY PRECAUTIONS, PATIENT VERBALIZED UNDERSTANDING. PATIENT CHANGED INTO SLEEPING CLOTHES, PUT ON OWN JERRY HOSE USING SOCK AID DEVICE.
--- NOTE | 2020-12-20 03:23 | NUR ---
PATIENT SLEEPING, DOES NOT WAKE WHEN ROOM ENTERED BY STAFF. BREATHING NONLABORED AND EVEN. PATIENT UP IN ROOM WITH SBA, DENIES CHEST PAIN/SOA/NAUSEA THROUGHOUT SHIFT AT THIS TIME. DRESSING TO LEFT KNEE IN PLACE. BED ALARM ON WHEN IN BED OR CHAIR ALARM ON WHEN UP IN CHAIR.
[2020-12-20 05:24] VITALS: BP 146/55; PULSE 79; TEMP 98.4
--- NOTE | 2020-12-20 06:59 | NUR ---
Report received from JR De La Cruz. Patient is resting in bed. Call light and bedside table are within reach. Will continue to monitor throughout shift.
--- NOTE | 2020-12-20 07:11 | NUR ---
CHANGE OF SHIFT REPORT GIVEN TO DAY SHIFT NURSE, SOURAV NORRIS.
--- NOTE | 2020-12-20 10:00 | NUR ---
Patient's Heparin was discontinued per RUDI Coburn. Patient is tolerating current regimen with going from the drips to oral medication. Will continue to monitor patient throughout shift.
--- NOTE | 2020-12-20 12:30 | NUR ---
Patient c/o nausea after eating lunch. Dr. Veloz informed this [facility]
--- NOTE | 2020-12-20 18:45 | NUR ---
Patient c/o pain in left hand below IV site. Patient states it is just hurting. This nurse informed the patient she would let the oncoming nurse know. Patient also requested to take a shower. This nurse also informed oncoming nurse as well.
--- NOTE | 2020-12-20 19:00 | NUR ---
PATIENT REPORTED HAD BM TODAY.
--- NOTE | 2020-12-20 19:19 | NUR ---
RECEIVED CHANGE OF SHIFT REPORT FROM DAY SHIFT NURSE. BED ALARM ON WHILE IN BED WITH CALL LIGHT WITHIN REACH. VISITOR AT BEDSIDE.
[2020-12-20 19:32] VITALS: BP 122/56; PULSE 85; TEMP 98.6
--- NOTE | 2020-12-21 03:19 | NUR ---
PATIENT SLEEPS AND DOES NOT WAKE WHEN DOOR TO ROOM IS OPENED BY STAFF ON HOURLY ROUNDS. OBSERVED BREATHING NONLABORED AND EVEN. BED ALARM ON WITH CALL LIGHT WITHIN REACH.
[2020-12-21 05:32] VITALS: BP 163/64; PULSE 85; TEMP 98.5
--- NOTE | 2020-12-21 07:09 | NUR ---
CHANGE OF SHIFT REPORT GIVEN TO DAY SHIFT NURSE, BAMBI NORRIS.
[2020-12-21 07:37] LABS: MEAN CELL VOLUME 93 fl (80.0-100.0); MEAN CORPUSCULAR HGB CONC 32 g/dl (33.0-37.0); MEAN PLATELET VOLUME 8.3 fl (7.4-10.4); PLATELET COUNT 501 K/mm3 (130-400); RED BLOOD COUNT 3.36 M/mm3 (4.10-5.30); REDCELL DISTRIBUTION WIDTH-CV 14.4 % (11.5-14.5)
[2020-12-21 07:38] LABS: HEMATOCRIT 31.1 % (37.0-47.0); HEMOGLOBIN 9.9 g/dl (12.5-16.0); MEAN CORPUSCULAR HEMOGLOBIN 29 pg (27.0-31.0)
[2020-12-21 07:48] LABS: CALCIUM 9.1 mg/dL (8.4-10.2); CREATININE, serum 0.72 (0.52-1.25); MAGNESIUM 2.1 mg/dL (1.6-2.3); POTASSIUM 4.4 mmol/L (3.4-5.0)
[2020-12-21 08:45] LABS: EOSINOPHIL 4 % (0-4); HYPOCHROMIA 2+; LYMPHOCYTE 12 % (20.0-51.0); MYELOCYTE 1 % (0-0); NEUTROPHILS 72 % (42.0-75.2); PLATELET ESTIMATE INCREASED (NORMAL)
--- NOTE | 2020-12-21 13:00 | NUR ---
Conducted pt/family meeting w/ pt, her daughter (Mavis), & (Tobias). Also present included PT, OT, & [employer]/SW. The team explained how pt has been doing & any concerns. Informed them of d/c for 12/23/20, w/ recommendations for home health PT/OT. The family had some questions/concerns, which the team was able to address. Pt is interested in meals on wheels. Pt stated she has been very pleased w/ her stay & has found it very beneficial.
--- NOTE | 2020-12-21 13:31 | NUR ---
Admission QIM scores were reviewed by the team. Code of 4 chosen for oral hygiene was determined by team discussion to be the most usual performance before interventions for this patient during the assessment period. Code of 4 chosen for toilet hygiene was determined by team discussion to be the most usual performance for this patient during the assessment period. Code of 4 chosen for shower/bathe self was determined by team discussion to be the most usual performance for this patient during the assessment period. Code of 5 chosen for upper body dressing was determined by team discussion to be the most usual performance for this patient during the assessment period. Code of 4 chosen for lower body dressing was determined by team discussion to be the most usual performance for this patient during the assessment period. Code of 3 chosen for putting on/taking off footwear was determined by team discussion to be the most usual performance for this patient during the assessment period. Code of 6 chosen for sit to lying was determined by team discussion to be the most usual performance for this patient during the assessment period. Code of 6 chosen for lying to sitting on side of bed was determined by team discussion to be the most usual performance for this patient during the assessment period. Code of 4 for sit to stand was determined by team discussion to be the most usual performance for this patient during the assessment period. Code of 4 for chair/bed to chair transfers was determined by team discussion to be the most usual performance for this patient during the assessment period.--PD Jesus
--- NOTE | 2020-12-21 14:04 | NUR ---
Attempted to contact [facility]. Left a message regarding a referral.
[2020-12-21 17:17] VITALS: BP 128/65; PULSE 86; TEMP 98.7
--- NOTE | 2020-12-21 17:40 | NUR ---
Patient did really well today. Denies pain and nausea at this time. She been doing well with getting around the room. She ate a good about of her breakfast but did not eat much lunch or supper. She stated lunch and supper was not good. No other changes at this time. Call light within reach.
--- NOTE | 2020-12-21 18:57 | NUR ---
RECEIVED CHANGE OF SHIFT REPORT FROM DAY SHIFT NURSE. PATIENT UP INDEPENDENTLY IN ROOM. DENIES ANY NEEDS AT TIME OF REPORT, DID REQUEST TYLENOL WITH MEDS TONIGHT.
--- NOTE | 2020-12-22 02:04 | NUR ---
PATIENT SLEEPING, DOES NOT WAKE WHEN DOOR TO ROOM IS OPENED BY STAFF ON NURSING HOURLY ROUNDS. PATIENT UP IN ROOM INDEPENDENTLY WITH NO REPORTED PROBLEMS.
[2020-12-22 05:30] VITALS: BP 151/64; PULSE 79; TEMP 98.6
--- NOTE | 2020-12-22 07:13 | NUR ---
CHANGE OF SHIFT REPORT GIVEN TO DAY SHIFT NURSE, DENNIS NORRIS.
--- NOTE | 2020-12-22 09:22 | NUR ---
Attempted to contact [facility] to make a referral. Left message of referral & faxed referral information.
--- NOTE | 2020-12-22 10:29 | NUR ---
Visited w/ pt about her d/c tomorrow, 12/23/20. She stated she feels good & ready to go home. Inquired how she has been doing w/ being mod I in her room & she stated it has been going fine & has no concerns. [facility] Also told her that SW had contact [facility] [facility] & left them a message & intend on trying to contact them today again. Did provide her w/ the phone number for meals on wheels. Discussed equipment & she stated that she has a walker at home & they are suppose to be getting her another one for the basement to use. She did not have any other questions or concerns at this time.
--- NOTE | 2020-12-22 10:59 | NUR ---
Follow-up; Patient smiled and thanked for looking in on her again today. Marilou seemed to have enjoyed our previous visit. will continue to look in on her.
--- NOTE | 2020-12-22 11:08 | NUR ---
Patient resting in room following her morning therapy. Tolerated diet well. Denies any pain or questions at this time. Will continue to monitor.
--- NOTE | 2020-12-22 13:01 | NUR ---
Patient attending her last therapies for the day.
[2020-12-22 17:00] VITALS: BP 103/53; PULSE 84; TEMP 98
--- NOTE | 2020-12-22 17:59 | NUR ---
Patient attended all therapies this shift. This nurse changed bedding for patient. Denies pain at this time. Was having some pain and given prn Tylenol this afternoon. Follow up appointments for discharge tomorrow were made. Dressing was intact to left knee. No drainage observed. Will continue to monitor.
--- NOTE | 2020-12-22 18:39 | NUR ---
RECEIVED CHANGE OF SHIFT REPORT FROM DAY SHIFT NURSE.
--- NOTE | 2020-12-23 01:42 | NUR ---
PATIENT SLEEPING, DOES NOT WAKE WHEN DOOR TO ROOM IS OPENED BY STAFF ON HOURLY NURSING ROUNDS. CALL LIGHT WITHIN REACH. PATIENT UP INDEPENDENTLY IN ROOM WITH NO REPORTED CONCERNS OR PROBLEMS. ANTICIPATED DISCHARGE TOMORROW WITH NO OTHER VOICED CONCERNS OR QUESTIONS. DENIED CHEST PAIN/SOA/NAUSEA SO FAR THIS SHIFT.
[2020-12-23 05:47] VITALS: BP 135/52; PULSE 78; TEMP 97.9
--- NOTE | 2020-12-23 06:51 | NUR ---
CHANGE OF SHIFT REPORT GIVEN TO DAY SHIFT NURSE, DENNIS NORRIS.
[2020-12-23 08:15] LABS: CALCIUM 9.1 mg/dL (8.4-10.2); CREATININE, serum 0.68 (0.52-1.25); MAGNESIUM 2.1 mg/dL (1.6-2.3); POTASSIUM 4.4 mmol/L (3.4-5.0)
--- NOTE | 2020-12-23 08:34 | NUR ---
Patient resting in recliner, call light in reach and independent in her room. Denies questions. Discussed DC this afternoon. She thinks she wants to leave around 2 PM today.
[2020-12-23] MEDS ORDERED: TYLENOL 325MG325 MG PO (08:38)
--- NOTE | 2020-12-23 08:39 | NUR ---
Received call back from [facility] [employer]. Provided necessary information to initiate referral. They will start delivery on , 12/24/20.
--- NOTE | 2020-12-23 09:17 | NUR ---
Visited w/ pt about d/c for today, 12/23/20. She continues to feel she is ready to go home & had no questions or concerns at this time. Informed her that [facility] [employer] [facility] returned SW's call & SW provided necessary information to start meals on , 12/24/20. Also told her that [facility] should contact her in a day or 2 to come see her. Faxed d/c orders to [facility].
--- NOTE | 2020-12-23 10:39 | NUR ---
Patient Health Summary, Discharge Summary, and Home Meds printed and reviewed with patient. Stressed importance of follow up appointments. Belongings gathered by RN/Jayleen including phone, manager support services, glasses, dirty clothes from hamper and misc. personal items including flonase. Patient denied questions.
--- NOTE | 2020-12-23 11:14 | NUR ---
This nurse wheeled patient down via wc to the admission entrance to be driven home by . Patient was a SBA with no gait belt into the vehicle. she was seatbelted in for her ride home.
== END 2020-12-23 11:10 | disposition home health service (06) | DRG 559 ==
PROVIDERS: Physician Assistant; Student in an Organized Health Care Education/Training Program; ADMIT Internal Medicine
DX: Z47.1 Aftercare following joint replacement surgery (principal); J96.01 Acute respiratory failure with hypoxia; E87.1 Hypo-osmolality and hyponatremia; I25.10 Atherosclerotic heart disease of native coronary artery without angina pectoris; E03.9 Hypothyroidism, unspecified; J44.9 Chronic obstructive pulmonary disease, unspecified; I10 Essential (primary) hypertension; F32.9 Major depressive disorder, single episode, unspecified; K44.9 Diaphragmatic hernia without obstruction or gangrene; R33.9 Retention of urine, unspecified; E78.5 Hyperlipidemia, unspecified; K59.00 Constipation, unspecified; R11.0 Nausea; R53.82 Chronic fatigue, unspecified; R53.81 Other malaise; Z79.891 Long term (current) use of opiate analgesic; Z79.82 Long term (current) use of aspirin; Z95.5 Presence of coronary angioplasty implant and graft; Z96.652 Presence of left artificial knee joint; Z90.49 Acquired absence of other specified parts of digestive tract; Z90.710 Acquired absence of both cervix and uterus; Z88.0 Allergy status to penicillin; Z88.2 Allergy status to sulfonamides; Z88.8 Allergy status to other drugs, medicaments and biological substances
CPT/HCPCS: 99222-AI; 99231-AI; 99232-AI; 99239; A9284

== ENCOUNTER → 2021-02-24 | Outpatient (CLI) | payer MEDICARE, BC ==
[~2021-02-24] MED LIST changes: +DULCOLAX STOOL100 MG PO; +LEADER CLE17 GM/Dose PO; +PERCOCET 325 MG1 TA2 PO; +TYLENOL 325MG325 MG PO
== END ==
LOC: MHCPAIN 10:31
DX: M47.817 Spondylosis without myelopathy or radiculopathy, lumbosacral region (principal); M53.3 Sacrococcygeal disorders, not elsewhere classified; M96.1 Postlaminectomy syndrome, not elsewhere classified; G89.29 Other chronic pain
CPT/HCPCS: G0463

== ENCOUNTER → 2021-02-25 | Outpatient (CLI) | payer MEDICARE, BC | LOC: MHCPAIN 13:57 | DX: M47.817 Spondylosis without myelopathy or radiculopathy, lumbosacral region (principal); M53.3 Sacrococcygeal disorders, not elsewhere classified | CPT/HCPCS: G0260; J1040; Q9967 ==

== ENCOUNTER 2021-03-04 10:00 | Outpatient (RCR) | payer MEDICARE, BC | END 2021-03-09 13:39 | disposition home or self-care (01) | LOC: PT.GENESIS 10:00 | DX: Z96.652 Presence of left artificial knee joint (principal) ==

== ENCOUNTER → 2021-03-15 | Outpatient (CLI) | payer MEDICARE, BC | LOC: MHCPAIN 13:22 | DX: M47.816 Spondylosis without myelopathy or radiculopathy, lumbar region (principal); M96.1 Postlaminectomy syndrome, not elsewhere classified; M53.3 Sacrococcygeal disorders, not elsewhere classified; G89.29 Other chronic pain | CPT/HCPCS: G0463 ==

== ENCOUNTER 2021-04-29 09:00 | Outpatient (RCR) | payer MEDICARE, BC | END 2021-05-21 | disposition home or self-care (01) | LOC: PT.GENESIS | DX: M51.36 Other intervertebral disc degeneration, lumbar region (principal) ==

== ENCOUNTER → 2021-06-16 | Outpatient (CLI) | payer MEDICARE, BC | LOC: MHCPAIN 08:40 | DX: M47.817 Spondylosis without myelopathy or radiculopathy, lumbosacral region (principal); M53.3 Sacrococcygeal disorders, not elsewhere classified; M96.1 Postlaminectomy syndrome, not elsewhere classified; M54.50 Low back pain, unspecified | CPT/HCPCS: G0463 ==

== ENCOUNTER → 2021-07-01 | Outpatient (CLI) | payer MEDICARE, BC | LOC: MHCPAIN 09:03 | DX: M53.3 Sacrococcygeal disorders, not elsewhere classified (principal); M96.1 Postlaminectomy syndrome, not elsewhere classified; M47.817 Spondylosis without myelopathy or radiculopathy, lumbosacral region | CPT/HCPCS: G0260; J1040; Q9967 ==

== ENCOUNTER → 2021-07-05 | Outpatient (CLI) | payer MEDICARE, BC | LOC: MC.RAD 10:00 | DX: Z12.31 Encounter for screening mammogram for malignant neoplasm of breast (principal) ==

== ENCOUNTER 2021-09-25 10:07 | Emergency (ER) | payer MEDICARE, BC ==
[~2021-09-25] VITALS: Ht 154.9 cm; Wt 67.7 kg
[2021-09-25 10:25] VITALS: TEMP 98.1
[2021-09-25] MEDS ORDERED: PREDNISONE20 MG PO ×3 (10:52→13:03)
[2021-09-25] MEDS ORDERED: ATARAX 25MG25 MG/TAB PO ×3 (10:52→13:03)
[2021-09-25 13:02] VITALS: BP 137/84; PULSE 82
== END 2021-09-25 13:04 | disposition home or self-care (01) ==
LOC: COL.ER 10:07
DX: T78.40XA Allergy, unspecified, initial encounter (principal); Z86.16 Personal history of COVID-19; Z91.040 Latex allergy status
CPT/HCPCS: J1100; J1200

== ENCOUNTER 2021-10-19 11:08 | Emergency (ER) | payer MEDICARE, BC ==
[~2021-10-19] VITALS: Ht 152.4 cm; Wt 67.7 kg
[2021-10-19 11:20] VITALS: TEMP 97.6
[2021-10-19 11:52] LABS: BASO % 0.5 % (0.0-2.0); EOS # 0.3 K/mm3 (0.0-0.7); EOS % 5.2 % (0.0-4.0); GRAN # 4.5 K/mm3 (1.4-6.5); GRAN % 70.4 % (42.2-75.2); HEMATOCRIT 39.2 % (37.0-47.0); HEMOGLOBIN 13.3 g/dl (12.5-16.0); LYMPH # 0.4 K/mm3 (1.2-3.4); LYMPH % 6.6 % (20.0-51.0); MEAN CELL VOLUME 85 fl (80.0-100.0); MEAN CORPUSCULAR HEMOGLOBIN 29 pg (27-31); MEAN CORPUSCULAR HGB CONC 34 g/dl (33.0-37.0); MEAN PLATELET VOLUME 8.5 fl (7.4-10.4); MONO # 1.1 K/mm3 (0.1-0.6); MONO % 16.7 % (1.7-9.3); PLATELET COUNT 331 K/mm3 (130-400); RED BLOOD COUNT 4.61 M/mm3 (4.10-5.30); REDCELL DISTRIBUTION WIDTH-CV 13.2 % (11.5-14.5)
[2021-10-19 12:24] LABS: ALBUMIN 3.1 gm/dL (3.4-4.8); CALCIUM 9.4 mg/dL (8.4-10.2); CREATININE, serum 0.89 mg/dL (0.57-1.11); POTASSIUM 3.8 mmol/L (3.5-4.5); TOTAL PROTEIN 6.2 gm/dL (6.2-8.1)
[2021-10-19 13:38] LABS: COLLECTION METHOD CLEAN CATCH
[2021-10-19 13:48] LABS: MUCOUS Present (NOT PRESENT); PH 5 (5-8); SQUAMOUS EPITHELIAL >50 /hpf (0-10); URINE APPEARANCE Turbid (CLEAR/HAZY); URINE BACTERIA Occasional /hpf (NONE SEEN); URINE BILIRUBIN Negative (NEGATIVE); URINE BLOOD 1+ (NEGATIVE); URINE COLOR Amber (YELLOW); URINE GLUCOSE Negative (NEGATIVE); URINE KETONE Negative (NEGATIVE); URINE LEUKOCYTE ESTERASE 3+ (NEGATIVE); URINE NITRATE Negative (NEGATIVE); URINE PROTEIN(semi-quant) 1+ (NEGATIVE); URINE RBC 20-50 /hpf (0-2); URINE UROBILINOGEN Negative (NEGATIVE)
[2021-10-19 14:34] LABS: COLLECTION METHOD CATHETER
[2021-10-19 15:07] LABS: AMORPHOUS CRYSTAL Present (NOT PRESENT); MUCOUS Present (NOT PRESENT); PH 5 (5-8); SQUAMOUS EPITHELIAL None Seen /hpf (0-10); URINE APPEARANCE Turbid (CLEAR/HAZY); URINE BACTERIA Occasional /hpf (NONE SEEN); URINE BILIRUBIN Negative (NEGATIVE); URINE BLOOD Negative (NEGATIVE); URINE COLOR Amber (YELLOW); URINE GLUCOSE Negative (NEGATIVE); URINE KETONE Negative (NEGATIVE); URINE LEUKOCYTE ESTERASE Negative (NEGATIVE); URINE NITRATE Negative (NEGATIVE); URINE PROTEIN(semi-quant) Negative (NEGATIVE); URINE RBC None Seen /hpf (0-2); URINE UROBILINOGEN Negative (NEGATIVE)
[2021-10-19 15:30] VITALS: BP 116/61; PULSE 88
[2021-10-19] MEDS ORDERED: PROAIR HFA0.09 MG/AC IH (15:37)
== END 2021-10-19 15:50 | disposition home or self-care (01) ==
LOC: COL.ER 11:08
PROVIDERS: Emergency Medicine; Nurse Practitioner Primary Care
DX: R53.81 Other malaise (principal); J90 Pleural effusion, not elsewhere classified; K44.9 Diaphragmatic hernia without obstruction or gangrene; R59.1 Generalized enlarged lymph nodes; Z20.822 Contact with and (suspected) exposure to COVID-19; Z91.040 Latex allergy status
CPT/HCPCS: Q9967

== ENCOUNTER → 2021-11-16 | Outpatient (CLI) | payer MEDICARE, BC ==
[~2021-11-16] MED LIST changes: +PROAIR HFA0.09 MG/AC IH
== END ==
LOC: MHCPAIN 10:56
DX: M53.3 Sacrococcygeal disorders, not elsewhere classified (principal); M96.1 Postlaminectomy syndrome, not elsewhere classified; M47.897 Other spondylosis, lumbosacral region
CPT/HCPCS: G0463

== ENCOUNTER → 2021-11-18 | Outpatient (CLI) | payer MEDICARE, BC | LOC: MHCPAIN 10:35 | DX: M53.3 Sacrococcygeal disorders, not elsewhere classified (principal); M47.817 Spondylosis without myelopathy or radiculopathy, lumbosacral region | CPT/HCPCS: G0260; J1040; Q9967 ==

== ENCOUNTER 2021-12-16 11:30 | Outpatient (RCR) | payer MEDICARE, BC | END 2021-12-19 | disposition home or self-care (01) | LOC: PT.GENESIS | DX: M51.36 Other intervertebral disc degeneration, lumbar region (principal) ==

== ENCOUNTER 2022-01-05 11:15 | Outpatient (RCR) | payer MEDICARE, BC | END 2022-01-06 08:13 | disposition home or self-care (01) | LOC: PT.GENESIS 11:15 | DX: M51.36 Other intervertebral disc degeneration, lumbar region (principal) ==

== ENCOUNTER → 2022-02-09 | Outpatient (CLI) | payer MEDICARE, BC ==
[2022-02-09 15:59] LABS: BASO % 0.4 % (0.0-2.0); EOS # 0.1 K/mm3 (0.0-0.7); GRAN # 7.3 K/mm3 (1.4-6.5); GRAN % 78.2 % (42.2-75.2); HEMATOCRIT 38.9 % (37.0-47.0); LYMPH # 0.6 K/mm3 (1.2-3.4); LYMPH % 6.1 % (20.0-51.0); MEAN CELL VOLUME 84 fl (80.0-100.0); MEAN CORPUSCULAR HEMOGLOBIN 28 pg (27-31); MEAN CORPUSCULAR HGB CONC 33 g/dl (33.0-37.0); MEAN PLATELET VOLUME 8.3 fl (7.4-10.4); MONO # 1.3 K/mm3 (0.1-0.6); MONO % 13.8 % (1.7-9.3); PLATELET COUNT 302 K/mm3 (130-400); RED BLOOD COUNT 4.61 M/mm3 (4.10-5.30); REDCELL DISTRIBUTION WIDTH-CV 13.7 % (11.5-14.5)
[2022-02-09 16:16] LABS: ALBUMIN 3.4 gm/dL (3.4-4.8); BILIRUBIN,TOTAL 0.3 mg/dL (0.2-1.2); CALCIUM 9.3 mg/dL (8.4-10.2); CREATININE, serum 0.78 mg/dL (0.57-1.11); POTASSIUM 3.7 mmol/L (3.5-4.5); TOTAL PROTEIN 6.4 gm/dL (6.2-8.1)
== END ==
LOC: COL.LAB 15:31
PROVIDERS: Family Medicine
DX: M79.652 Pain in left thigh (principal)

== ENCOUNTER → 2022-02-10 | Outpatient (CLI) | payer MEDICARE, BC | LOC: COL.VAS 08:00 | DX: I80.02 Phlebitis and thrombophlebitis of superficial vessels of left lower extremity (principal); R79.1 Abnormal coagulation profile ==

== ENCOUNTER 2022-03-24 15:02 | Inpatient (IN) | payer MEDICARE, BC ==
[~2022-03-24] VITALS: Ht 157.5 cm; Wt 68.9 kg
[~2022-03-24 15:02] MED LIST changes: +GRALISE600 MG PO; +IMDUR 60MG60 MG/TAB PO
[2022-03-24 15:49] LABS: BASO % 0.2 % (0.0-2.0); EOS % 0.1 % (0.0-4.0); GRAN # 14.2 K/mm3 (1.4-6.5); GRAN % 89.6 % (42.2-75.2); HEMOGLOBIN 12.2 g/dl (12.5-16.0); LYMPH # 0.3 K/mm3 (1.2-3.4); LYMPH % 2.1 % (20.0-51.0); MEAN CELL VOLUME 82 fl (80.0-100.0); MEAN CORPUSCULAR HEMOGLOBIN 28 pg (27-31); MEAN CORPUSCULAR HGB CONC 34 g/dl (33.0-37.0); MEAN PLATELET VOLUME 8.2 fl (7.4-10.4); MONO # 1.1 K/mm3 (0.1-0.6); MONO % 6.7 % (1.7-9.3); PLATELET COUNT 304 K/mm3 (130-400); RED BLOOD COUNT 4.42 M/mm3 (4.10-5.30); REDCELL DISTRIBUTION WIDTH-CV 14.7 % (11.5-14.5)
[2022-03-24 15:50] LABS: HEMATOCRIT 36.1 % (37.0-47.0)
[2022-03-24 16:07] LABS: ALBUMIN 2.9 gm/dL (3.4-4.8); BILIRUBIN,TOTAL 0.8 mg/dL (0.2-1.2); C-REACTIVE PROTEIN 10.53 mg/dL (0.00-0.50); CALCIUM 9.3 mg/dL (8.4-10.2); CREATININE, serum 0.88 mg/dL (0.57-1.11); POTASSIUM 4.7 mmol/L (3.5-4.5); TOTAL PROTEIN 5.8 gm/dL (6.2-8.1)
[2022-03-24 16:19] LABS: TROPONIN-I 0.049 ng/mL (0.00-0.033)
[2022-03-24 18:05] LABS: COLLECTION METHOD CLEAN CATCH
[2022-03-24 18:19] LABS: URINE APPEARANCE Clear (CLEAR/HAZY); URINE COLOR Yellow (YELLOW)
[2022-03-24 18:21] LABS: URINE BLOOD Negative (NEGATIVE); URINE GLUCOSE Negative (NEGATIVE); URINE KETONE Negative (NEGATIVE); URINE NITRATE Negative (NEGATIVE); URINE PROTEIN(semi-quant) Negative (NEGATIVE); URINE UROBILINOGEN 0.2 E.U/dL (0.2-1.0)
[2022-03-24] MEDS ORDERED: PROTONIX 40MG T40 MG PO (18:55)
[2022-03-24] MEDS ORDERED: NEURONTIN300 MG/CAP PO (18:55)
[2022-03-24] MEDS ORDERED: REMERON 15M15 MG/TA1 PO (18:56)
[2022-03-24] MEDS ORDERED: IMDUR 30MG30 MG/TAB PO (18:56)
[2022-03-24] MEDS ORDERED: LIPITOR 40MG TA40 MG PO (18:56)
[2022-03-24] MEDS ORDERED: TOPROL XL 50MG50 MG PO (18:57)
[2022-03-24] MEDS ORDERED: SINGULAIR 110 MG/TAB PO (18:57)
[2022-03-24] MEDS ORDERED: SYNTHROID0.05 MG/TA PO (18:57)
[2022-03-24] MEDS ORDERED: CYMBALTA 60MG60 MG PO (18:58)
[2022-03-24] MEDS ORDERED: PROVENTIL0.09 MG/A1 IH (18:58)
[2022-03-24] MEDS ORDERED: COZAAR 50MG50 MG/TAB PO (18:58)
[2022-03-24 19:37] LABS: URINE BACTERIA Rare /hpf (NONE SEEN)
[2022-03-24 20:15] VITALS: BP 121/64; PULSE 93; TEMP 97.7
[2022-03-24 22:31] LABS: PARTIAL THROMBOPLASTIN TIME 31.5 SECONDS (26.0-37.0)
[2022-03-24 23:41] VITALS: BP 139/63; PULSE 100; TEMP 97.9
[2022-03-25] VITALS (12 sets, daily range): BP systolic 102–155; BP diastolic 33–97; PULSE 80–115; TEMP 97.4–98.4
--- NOTE | 2022-03-25 00:39 | NUR ---
PT ARRIVED ON FLOOR AT APPROXIM[facility] 2015 VIA STRETCHER FROM ED, VSS DENIES PAIN, LABS AND RESULTS RECEIVED WITHI FOLLOWING WERE COMPLETED BY RN PER MANAGER ENGLISH, ABX GIVEN, CARO PLACED, LASIX GIVEN, DOPPLER LLE WITH AUDIBLE PULSE HEARD X2, HEPARIN STARTED PER ORDER AND 2ND 22G IV PLACED IN RFA.
[2022-03-25 05:23] LABS: INR 1.6 (0.8-3.0); PROTHROMBIN TIME 18.7 SECONDS (9.7-12.8)
--- NOTE | 2022-03-25 05:25 | NUR ---
HEPARIN XA 0.97, STOPPED FOR 1 HOUR RESTART AT 0630 250UNITS/HR LESS
--- NOTE | 2022-03-25 06:36 | NUR ---
CONSULTS TO CARDS, PULM, AND ONC COMPLETED BY THIS RN.
--- NOTE | 2022-03-25 09:17 | NUR ---
BEDSIDE REPORT RECEIVED FROM JR LEYVA. PT RESTING IN BED, DAUGHTER AT BEDSIDE. HEPARIN INFUSING TO R FOREARM AT 900 UNITS/HR. CARO IN PLACE TO DD. PT IS ON 2L O2 PER NC. PT DENIES NEEDS AT THIS TIME, CALL LIGHT IN REACH.
--- NOTE | 2022-03-25 10:16 | NUR ---
Initial visit; Patient thanked Retail Sales Clerk for looking in on her and offering God's Blessings and keeping her in Retail Sales Clerk's prayers.
[2022-03-25 15:58] LABS: PLEURAL FLUID RBC 0 /mm3 (0-0); PLEURAL FLUID WBC 474 /mm3
[2022-03-25 15:59] LABS: PLEURAL FLUID APPEARANCE CLEAR; PLEURAL FLUID COLOR YELLOW
--- NOTE | 2022-03-25 16:04 | NUR ---
Chin Strap Sewer met with patient and patient's , Jonah (ph#[phone]) to discuss discharge planning. Patient lives in [place] with her and sees Dr. Hart for primary care. Patient obtains medications from [facility] with no difficulties. Patient has a cane and walker at home, but reports she has need to use the cane more often recently. Patient is normally independent but has not been doing well the last few weeks. Patient does not have Advance Directives. SW reviewed PT/OT recommendations with patient. Patient would like referral sent to IPR. SW also provided Medicare.gov list of SNF options for patient to review. SW contacted Yazmin, IPR Director to give referral. Discharge Plan: IPR Screen
[2022-03-26 01:07] LABS: BODY FLUID PH (AMS) 8 (())
[2022-03-26 03:19] VITALS: BP 111/44; PULSE 106; TEMP 99
[2022-03-26 07:16] LABS: MEAN CELL VOLUME 83 fl (80.0-100.0); MEAN CORPUSCULAR HGB CONC 33 g/dl (33.0-37.0); MEAN PLATELET VOLUME 8.7 fl (7.4-10.4); PLATELET COUNT 256 K/mm3 (130-400); RED BLOOD COUNT 3.65 M/mm3 (4.10-5.30); REDCELL DISTRIBUTION WIDTH-CV 14.9 % (11.5-14.5)
[2022-03-26 07:34] LABS: HEMATOCRIT 30.3 % (37.0-47.0); MEAN CORPUSCULAR HEMOGLOBIN 27 pg (27-31)
--- NOTE | 2022-03-26 07:44 | NUR ---
Pt sitting up in recliner. Daughter at bedside. Shift assessment completed. A&O x4. Pt requested to get tranferred to bed. No needs or concerns reported at this time. No pain or discomfort were reported. LAC INT CDI, RFA INT CDI. Dressing in Left side f her back CDI. Dressing in Left side of her groin CDI. Pt currently on 2L of O2 per NC. Tele on. Folley catheter in place. Urine obdulio and hazy collected in bag. Fall risk precautions in place. Call light within reach.
[2022-03-26 07:52] VITALS: BP 137/56; PULSE 109; TEMP 98.2
--- NOTE | 2022-03-26 08:00 | NUR ---
Patient sleeping, easily awakened with verbal command. A&Ox3. VSS 1L NC O2, no reported SOB. IV CDI. Denies pain and discomfort. LF side back bandaid CDI. Martin intact. Call light within reach. Bed alarm on
[2022-03-26 11:15] VITALS: BP 113/69; PULSE 113; TEMP 97.7
[2022-03-26 16:04] VITALS: BP 132/58; PULSE 105; TEMP 97.5
--- NOTE | 2022-03-26 18:20 | NUR ---
Martin removed, pericare provided before and after removal. Balloon intact, 10ml removed. Patient tolerated well. Nurse informed the patient to call nursing staff when needing to void. Had an uneventful day. Daughter has been at the bedside throughout the day. A&Ox4. VSS. RM air, no complaints of SOB. Denies pain. IV CDI. Standby assist with walker and gait belt. No further needs expressed. Call light within reach. Bed alarm on
--- NOTE | 2022-03-26 19:01 | NUR ---
Daughter reported that the patient seems confused. A&Ox3. Confused on location. O2 99 RM air. Nurse informed the daughter that the night nurse will continue to assess throughout the night. No further needs expressed. Call light within reach. Bed alarm on
--- NOTE | 2022-03-26 20:30 | NUR ---
Pt lying down in bed. Shift assessment completed. A&O x4. LFA and R wrist CDI. Pt states feeling good although uncomfortable when lying down on her back. This HYPERTRICHOLOGIST repositioned her on her right side and used pillows to keep some pressure off from her bottom. Dressing on her saccrum. No new skin issues noticed at this time. Tele on. We will monitor urine output during the night. Fall risk precautions remain in palce. Call light within reach.
[2022-03-26 21:07] VITALS: BP 147/66; PULSE 103; TEMP 98.9
[2022-03-27 00:25] VITALS: BP 145/65; PULSE 100; TEMP 98.2
[2022-03-27 03:45] VITALS: BP 151/68; PULSE 103; TEMP 97.6
--- NOTE | 2022-03-27 06:48 | NUR ---
Pt was encouraged to use the restroom twice during the night. The first time after trying to void and pt stating that she couldn't this CREATIVE ART THERAPIST did a bladder scan which revealed >300ml of urine retained. this CREATIVE ART THERAPIST waited about an hour and half to try again to use the bathroom. The second time that she ambulated to the bathroom and didn't void, she got another bladder scan with urine retention of >455ml. Provider got reported about this event and pt got a straight catheter urine collection per hospitalist's orders. 475ml of urine were collected. Call light within reach.
[2022-03-27 06:52] LABS: CALCIUM 8.7 mg/dL (8.4-10.2); CREATININE, serum 0.76 mg/dL (0.57-1.11); MAGNESIUM 1.3 mg/dL (1.6-2.6); POTASSIUM 4.1 mmol/L (3.5-4.5)
[2022-03-27 08:00] VITALS: BP 146/79; PULSE 100; TEMP 97.9
--- NOTE | 2022-03-27 08:00 | NUR ---
Patient laying in bed, A&Ox4. VSS. IV CDI. Denies pain and discomfort. Daughter at the bedside. Nurse instructed the patient to distribute weight, sacral area is reddened. Patient verbalized an understanding. No further needs expressed. Call light within reach. Bed alarm on
[2022-03-27 12:00] VITALS: BP 132/72; PULSE 109; TEMP 99.8
[2022-03-27 16:00] VITALS: BP 128/61; PULSE 102; TEMP 99.2
--- NOTE | 2022-03-27 19:21 | NUR ---
Patient had an uneventful day. Spent the day resting in bed. A&Ox3. VSS. IV CDI. Nursing staff monitoring urine output and doing PRV. Doctor aware of daughters concerns with voiding. Patient has voided in the toilet, but small amounts. Daughter also states that the patient usually voids 2 times a day. Patient repositioned for comfort. No further needs expressed. Call light within reach
--- NOTE | 2022-03-27 21:00 | NUR ---
Pt sleeping. Awake for shift assessment. A&O x4. Pt states not having any pain or discomfort. She states feeling her left leg improving. Left AC INT and RFA INT are CDI. No needs or concerns at this time. Monitoring urine output. Will performa nother bladder scan around midnight to assess if pt has urine retention. She states not feeling wanting to use the bathroom. Fall risk precautions in palce. Call light within reach.
[2022-03-27 21:30] VITALS: BP 137/80; PULSE 99; TEMP 99.5
[2022-03-28 00:12] VITALS: BP 144/68; PULSE 99; TEMP 98.6
[2022-03-28 04:00] VITALS: BP 123/58; PULSE 99; TEMP 98.3
[2022-03-28 06:42] LABS: HEMOGLOBIN 10.6 g/dl (12.5-16.0); MEAN CELL VOLUME 84 fl (80.0-100.0); MEAN CORPUSCULAR HEMOGLOBIN 27 pg (27-31); MEAN CORPUSCULAR HGB CONC 32 g/dl (33.0-37.0); MEAN PLATELET VOLUME 8.8 fl (7.4-10.4); PLATELET COUNT 288 K/mm3 (130-400); REDCELL DISTRIBUTION WIDTH-CV 14.6 % (11.5-14.5)
[2022-03-28 06:47] LABS: HEMATOCRIT 32.8 % (37.0-47.0)
--- NOTE | 2022-03-28 07:47 | NUR ---
Pt got two bladder scans last night. At midnight she had 315ml of urine retention. Pt decided to wait for 1 or 2 hr before getting a straight catheter. This TOWER FOREMAN came back at 0300 to ambulate to the bathroom. She states she doesn't feel like going to the bathroom. Second bladder scan shows 475ml of urine retention. This time straight catheter is performed and 460ml were collected in graduated cup. Pt is unable to identify need to void. Report passed to day shift RN Shannan.
--- NOTE | 2022-03-28 08:00 | NUR ---
Patient sleeping in bed, easily awakened with verbal command. A&Ox3. VSS. IV CDI. Denies pain and discomfort. Daughter at the bedside. No further needs expressed. Call light within reach
[2022-03-28 08:10] VITALS: BP 121/55; PULSE 98; TEMP 97.3
[2022-03-28 11:24] VITALS: BP 140/63; PULSE 107; TEMP 97.3
--- NOTE | 2022-03-28 13:36 | NUR ---
SW notified by IPR director after meeting with the patient that the patient does not want to go to [facility]. Patients clinical referral faxed to [facility] for SNF placement.
[2022-03-28 13:46] LABS: HEMOGLOBIN 11.3 g/dl (12.5-16.0)
[2022-03-28 13:47] LABS: HEMATOCRIT 33.7 % (37.0-47.0)
[2022-03-28 15:30] VITALS: BP 123/51; PULSE 103; TEMP 97.6
--- NOTE | 2022-03-28 17:33 | NUR ---
Patient sitting up in the recliner finishing eating dinner, daughter at the bedside. A&Ox3. VSS. IV CDI. Denies pain and discomfort. Monitoring urine output and bladder scan PRN. Nursing staff encouraging patient to distribute weight on sacral area. No further needs expressed. Call light within reach.
[2022-03-28 19:57] VITALS: BP 144/50; PULSE 103; TEMP 98.5
[2022-03-29 01:50] VITALS: BP 133/67; PULSE 96; TEMP 97.6
[2022-03-29 04:10] VITALS: BP 124/50; PULSE 95; TEMP 97.6
[2022-03-29 05:45] LABS: BASO % 0.2 % (0.0-2.0); EOS % 0.1 % (0.0-4.0); GRAN # 13.5 K/mm3 (1.4-6.5); GRAN % 89.7 % (42.2-75.2); HEMATOCRIT 37.6 % (37.0-47.0); HEMOGLOBIN 12.5 g/dl (12.5-16.0); LYMPH # 0.5 K/mm3 (1.2-3.4); LYMPH % 3.6 % (20.0-51.0); MEAN CELL VOLUME 83 fl (80.0-100.0); MEAN CORPUSCULAR HEMOGLOBIN 28 pg (27-31); MEAN CORPUSCULAR HGB CONC 33 g/dl (33.0-37.0); MEAN PLATELET VOLUME 8.7 fl (7.4-10.4); MONO # 0.8 K/mm3 (0.1-0.6); MONO % 5.3 % (1.7-9.3); PLATELET COUNT 346 K/mm3 (130-400); RED BLOOD COUNT 4.52 M/mm3 (4.10-5.30); REDCELL DISTRIBUTION WIDTH-CV 14.7 % (11.5-14.5)
[2022-03-29 06:03] LABS: CREATININE, serum 0.85 mg/dL (0.57-1.11); MAGNESIUM 2.2 mg/dL (1.6-2.6); POTASSIUM 5.5 mmol/L (3.5-4.5)
--- NOTE | 2022-03-29 08:00 | NUR ---
Pt awake and laying in bed. Morning medications administered per eMAR. Shift assessment completed. Telemetry remains on; tachycardic. O2 sat at 91% on RA with L lung diminished upon auscultation. INT in R and L wrist intact; no edmea or redness. Bandaid in place on L side of pts back. Bandaid in place on L femoral site. Lower left extremity is noticably larger than lower right extremity. Pt bladder scanned this morning with 520mL noted; took x3 attempts to straight cath and obtained 600mL. Pt is unable to urinate on her own. No further requests at this time. Fall precautions in place. Call light within reach.
[2022-03-29 08:05] VITALS: BP 151/74; PULSE 120; TEMP 100.1
[2022-03-29 09:20] VITALS: TEMP 98.2
[2022-03-29 11:41] VITALS: BP 123/49; PULSE 100; TEMP 97.6
[2022-03-29] MEDS ORDERED: ELIQUIS 5MG PO (14:09)
[2022-03-29] MEDS ORDERED: FLOMAX 0.40.4 MG/CAP PO (14:10)
[2022-03-29] MEDS ORDERED: MAG-OX 400400 MG/TAB PO (14:10)
[2022-03-29] MEDS ORDERED: LEVAQUIN 750MG750 M1 PO (14:17)
[2022-03-29 14:59] VITALS: BP 118/48; PULSE 69; TEMP 98.4
--- NOTE | 2022-03-29 15:20 | NUR ---
The clinical team is ready to discharge the patient today. SW notified and faxed updates to [facility], [facility], and [facility] [place]. Derek, at [facility], reports that they have COVID in their building and the patient would have to be okay with this. Mehreen, at [facility] [place], reports that they are able to accept the patient; but that the patient's PCP does not follow at their facility. The patient would have to be okay with their medical records clerk and they would not be able to take until tomorrow. MELBA met with the patient and her daughter to update. The patient states that she would prefer 1) [facility] 2) [facility]. Marialuisa, at [facility], reports that they are able to accept the patient today. SW updated the patient and her daughter. SW presented and read the IM form outloud to the patient. The patient verbalized understanding and of agreement to discharge today. SW provided her with a copy. The patient is to discharge today, 03/29, to [facility] for a skilled stay. Transportation was scheduled at 1545, via [facility]. MELBA informed the patient, her daughter, and RN of the transport time. No additional needs at this time.
--- NOTE | 2022-03-29 15:47 | NUR ---
This SENIOR STAFF CONSULTANT removed both INT from R and L wrist; catheter tips intact. Pt dressed and ready to discharge to SNF at this time.
--- NOTE | 2022-03-29 17:30 | NUR ---
[facility]. All questions answered.
== END 2022-03-29 15:47 | DRG 280 ==
LOC: COL.ER 15:02 → MEDICAL 19:18
PROVIDERS: Emergency Medicine; Internal Medicine; Internal Medicine Pulmonary Disease; Nurse Practitioner Family; Physician Assistant; ADMIT Internal Medicine
PROC: 0W9B3ZX Drainage of Left Pleural Cavity, Percutaneous Approach, Diagnostic (ICD-10-PCS; principal; 2022-03-25)
DX: I11.0 Hypertensive heart disease with heart failure (principal); I26.99 Other pulmonary embolism without acute cor pulmonale; I21.A1 Myocardial infarction type 2; J96.01 Acute respiratory failure with hypoxia; I50.33 Acute on chronic diastolic (congestive) heart failure; E87.1 Hypo-osmolality and hyponatremia; J91.8 Pleural effusion in other conditions classified elsewhere; E87.20 Acidosis, unspecified; C85.90 Non-Hodgkin lymphoma, unspecified, unspecified site; R65.10 Systemic inflammatory response syndrome (SIRS) of non-infectious origin without acute organ dysfunction; E78.5 Hyperlipidemia, unspecified; I25.10 Atherosclerotic heart disease of native coronary artery without angina pectoris; J44.9 Chronic obstructive pulmonary disease, unspecified; G93.32 Myalgic encephalomyelitis/chronic fatigue syndrome; F32.A Depression, unspecified; E83.42 Hypomagnesemia; D72.829 Elevated white blood cell count, unspecified; D64.9 Anemia, unspecified; R59.1 Generalized enlarged lymph nodes; E87.5 Hyperkalemia; K44.9 Diaphragmatic hernia without obstruction or gangrene; E03.9 Hypothyroidism, unspecified; R13.10 Dysphagia, unspecified; E88.09 Other disorders of plasma-protein metabolism, not elsewhere classified; Z79.890 Hormone replacement therapy; Z90.49 Acquired absence of other specified parts of digestive tract; Z90.89 Acquired absence of other organs; Z90.710 Acquired absence of both cervix and uterus; Z95.5 Presence of coronary angioplasty implant and graft; Z88.0 Allergy status to penicillin; Z88.2 Allergy status to sulfonamides; Z88.8 Allergy status to other drugs, medicaments and biological substances; Z88.1 Allergy status to other antibiotic agents; Z91.030 Bee allergy status; Z91.040 Latex allergy status; Z23 Encounter for immunization
CPT/HCPCS: J0692; J1644; J1815; J1940; J3475; J7040; Q9967

== ENCOUNTER → 2022-07-26 | Outpatient (CLI) | payer MEDICARE, BC ==
[~2022-07-26] MED LIST changes: +CYMBALTA 60MG60 MG PO; +DEBROX OT; +DULCOLAX S10 MG/SUPP RC; +ELIQUIS 5MG PO; +FLOMAX 0.40.4 MG/CAP PO; +LASIX 20MG TABL20 MG PO; +LEVAQUIN 750MG750 M1 PO; +LIPITOR 40MG TA40 MG PO; +MAG-OX 400400 MG/TAB PO; +TYLENOL SU650 MG/SUP RC
== END ==
LOC: COL.RAD 15:03
DX: M50.30 Other cervical disc degeneration, unspecified cervical region (principal); G31.9 Degenerative disease of nervous system, unspecified; J98.11 Atelectasis; K44.9 Diaphragmatic hernia without obstruction or gangrene; Z79.01 Long term (current) use of anticoagulants; S09.90XA Unspecified injury of head, initial encounter; W19.XXXA Unspecified fall, initial encounter

== ENCOUNTER → 2022-08-10 | Outpatient (CLI) | payer MEDICARE, BC ==
[~2022-08-10] MED LIST changes: +OMNICEF 300MG300 MG PO
== END ==
LOC: COL.RAD 10:26
DX: I65.02 Occlusion and stenosis of left vertebral artery (principal); J32.0 Chronic maxillary sinusitis; Z86.73 Personal history of transient ischemic attack (TIA), and cerebral infarction without residual deficits
CPT/HCPCS: Q9967

== ENCOUNTER → 2022-11-03 | Outpatient (CLI) | payer MEDICARE, BC ==
[~2022-11-03] MED LIST changes: +CEFTIN 250250 MG/TAB PO; +DOXYCYCLINE HY100 MG PO; +Gadoterate 15 ML VIAL IV ONE; +Iohexol 300 - 100 ML VIAL IV ONE; +NS 100 ML IV SCH; +PROBIOTIC PEAR1 EAC3 PO; +TYLENOL 500MG500 MG PO; +WOMEN'S DAILY1 TAB PO
== END ==
LOC: COL.RAD 10:10
DX: G31.9 Degenerative disease of nervous system, unspecified (principal); Z86.73 Personal history of transient ischemic attack (TIA), and cerebral infarction without residual deficits
CPT/HCPCS: A9575; Q9967

== ENCOUNTER 2023-06-01 10:36 | Inpatient (IN) | payer MEDICARE, BC ==
[~2023-06-01] VITALS: Ht 152.4 cm; Wt 68.3 kg
[2023-06-01] VITALS (7 sets, daily range): BP systolic 102–142; BP diastolic 59–78; PULSE 86–117; TEMP 97.5–98.6
[~2023-06-01 10:36] MED LIST changes: -CEFTIN 250250 MG/TAB PO; -DOXYCYCLINE HY100 MG PO; -Gadoterate 15 ML VIAL IV ONE; -Iohexol 300 - 100 ML VIAL IV ONE; -NS 100 ML IV SCH; -PROBIOTIC PEAR1 EAC3 PO; -TYLENOL 500MG500 MG PO; -WOMEN'S DAILY1 TAB PO
[2023-06-01] MEDS ORDERED: NS 1,000 ML IV ONE ×2 (11:00→12:15)
[2023-06-01 11:08] LABS: HEMATOCRIT 39.2 % (37.0-47.0); HEMOGLOBIN 13.3 g/dl (12.5-16.0); MEAN CELL VOLUME 85 fl (80.0-100.0); MEAN CORPUSCULAR HEMOGLOBIN 29 pg (27-31); MEAN CORPUSCULAR HGB CONC 34 g/dl (33.0-37.0); PLATELET COUNT 209 K/mm3 (130-400); RED BLOOD COUNT 4.61 M/mm3 (4.10-5.30); REDCELL DISTRIBUTION WIDTH-CV 15.7 % (11.5-14.5)
[2023-06-01 11:15] LABS: ALBUMIN 3.8 gm/dL (3.4-4.8); BILIRUBIN,TOTAL 0.9 mg/dL (0.2-1.2); CALCIUM 9.6 mg/dL (8.4-10.2); CREATININE, serum 0.84 mg/dL (0.57-1.11); POTASSIUM 3.4 mmol/L (3.5-4.5); TOTAL PROTEIN 7.2 gm/dL (6.2-8.1)
[2023-06-01 11:21] LABS: URINE COLOR Yellow (YELLOW)
[2023-06-01 11:22] LABS: PH 6.5 (5.0-8.5); URINE APPEARANCE Clear (CLEAR/HAZY); URINE BLOOD 1+ (NEGATIVE); URINE GLUCOSE Negative (NEGATIVE); URINE KETONE Negative (NEGATIVE); URINE NITRATE Positive (NEGATIVE); URINE PROTEIN(semi-quant) 2+ (NEGATIVE); URINE UROBILINOGEN 0.2 E.U/dL (0.2-1.0)
[2023-06-01 11:23] LABS: URINE BACTERIA Moderate /hpf (NONE SEEN)
[2023-06-01 11:24] LABS: TROPONIN-I 0.1 ng/mL (0.00-0.033)
[2023-06-01 11:29] LABS: BAND 27 % (0-10); EOSINOPHIL 1 % (0-4); LYMPHOCYTE 7 % (20.0-51.0); NEUTROPHILS 63 % (42.0-75.2); PLATELET ESTIMATE NORMAL (NORMAL)
[2023-06-01 11:50] LABS: COLLECTION METHOD CATHETER
[2023-06-01 12:11] LABS: SQUAMOUS EPITHELIAL None Seen /hpf (0-10)
[2023-06-01] MEDS ORDERED: cefTRIAXone 2 G in Water For Injection,Sterile 20 ML IV ONE (12:15)
[2023-06-01] MEDS ORDERED: WOMEN'S DAILY1 TAB PO (12:35)
[2023-06-01] MEDS ORDERED: TYLENOL 500MG500 MG PO (12:35)
[2023-06-01] MEDS ORDERED: PROBIOTIC PEAR1 EAC3 PO (12:41)
--- NOTE | 2023-06-01 14:28 | NUR ---
PATIENT ARRIVED TO FLOOR FROM ED AT 1428. DAUGHTER (KENN) AT BEDSIDE.
[2023-06-01] MEDS ORDERED: *Potassium Replacement Protocol MC SCH (14:30)
[2023-06-01] MEDS ORDERED: LR 1,000 ML IV SCH (14:30)
[2023-06-01] MEDS ORDERED: Potassium Bicarbonate/Citrate 20 MEQ Effervescent TAB PO SCH (14:30)
[2023-06-01] MEDS ORDERED: Acetaminophen 325 MG TAB PO PRN (14:30)
[2023-06-01] MEDS ORDERED: Ondansetron 4 MG/2 ML VIAL IV PRN (14:30)
[2023-06-01] MEDS ORDERED: Albuterol/Ipratropium 3 MG-0.5 MG/3 ML Neb Soln IH PRN (14:45)
--- NOTE | 2023-06-01 14:45 | NUR ---
PATIENT RESTING IN BED. DAUGHTER AT BEDSIDE. ALERT AND ORIENTED X4. PATIENT LIVES AT HOME WITH DAUGHTER, TYPICALLY INDEPENDENT. TAKES MEDICATIONS ON OWN. PATIENT IS AMBULATORY WITH CANE AT BASELINE. ADMISSION ASSESSMENT COMPLETE. ADMISSION INTAKE COMPLETE. PATIENT ANSWERED ALL QUESTIONS. TELEMETRY IN PLACE. NO SKIN ISSUES. NO REDNESS, WARMTH, OR PAIN IN BLE. PATIENT HAS "S" SHAPED SPINE AND HAS HX OF SPINAL FUSION. PATIENT DENIES PAIN OR DISCOMFORT AT THIS TIME.
[2023-06-01 15:59] LABS: MAGNESIUM 1.5 mg/dL (1.6-2.6)
[2023-06-01] MEDS ORDERED: Heparin 5,000 UNITS/ML 1 ML VIAL SQ SCH (16:00)
[2023-06-01 16:09] LABS: TROPONIN-I 0.134 ng/mL (0.00-0.033)
[2023-06-01] MEDS ORDERED: Magnesium Sulfate 4% 50 ML IV ONE (17:00)
[2023-06-01] MEDS ORDERED: Atorvastatin 40 MG TAB PO SCH (21:00)
[2023-06-01] MEDS ORDERED: Montelukast 10 MG TAB PO SCH (21:00)
[2023-06-01] MEDS ORDERED: Mirtazapine 15 MG TAB PO SCH (21:00)
[2023-06-01] MEDS ORDERED: DULoxetine 60 MG CAP PO SCH (21:00)
--- NOTE | 2023-06-01 21:00 | NUR ---
Assissted patient to bathroom. Patient had an incontent episode of diarrhea and states her stomach is aching. Rates her pain at an 8/10 in her stomach. Hospatilist called and notified, recieved orders to send down a stool sample if she experiences another episode of diarrhea. Assessment complete. IV in left forearm infusing with no complications. Call light and personal items in reach. Bed in low position and bed alarm on.
[2023-06-02] VITALS (12 sets, daily range): BP systolic 103–166; BP diastolic 56–76; PULSE 72–103; TEMP 97.1–98.2
[2023-06-02 05:46] LABS: MEAN CELL VOLUME 85 fl (80.0-100.0); MEAN CORPUSCULAR HGB CONC 35 g/dl (33.0-37.0); MEAN PLATELET VOLUME 9.2 fl (7.4-10.4); PLATELET COUNT 166 K/mm3 (130-400); RED BLOOD COUNT 3.52 M/mm3 (4.10-5.30); REDCELL DISTRIBUTION WIDTH-CV 15.9 % (11.5-14.5)
--- NOTE | 2023-06-02 06:00 | NUR ---
Patient resting in bed. Denies any pain this mornign and says her stomach feels much better. Patient had an uneventful evening other than her stomach pain. Call light and personal items in reach. Bed in low position and bed alarm on.
[2023-06-02 06:08] LABS: HEMOGLOBIN 10.4 g/dl (12.5-16.0); MEAN CORPUSCULAR HEMOGLOBIN 30 pg (27-31)
[2023-06-02 06:25] LABS: ALBUMIN 2.8 gm/dL (3.4-4.8); BILIRUBIN,TOTAL 0.3 mg/dL (0.2-1.2); CALCIUM 8.6 mg/dL (8.4-10.2); CREATININE, serum 1.02 mg/dL (0.57-1.11); MAGNESIUM 2.1 mg/dL (1.6-2.6); POTASSIUM 4.6 mmol/L (3.5-4.5); TOTAL PROTEIN 5.6 gm/dL (6.2-8.1)
[2023-06-02 06:52] LABS: BAND 25 % (0-10); LYMPHOCYTE 5 % (20.0-51.0); NEUTROPHILS 62 % (42.0-75.2); PLATELET ESTIMATE NORMAL (NORMAL)
[2023-06-02] MEDS ORDERED: cefTRIAXone 1 G in Water For Injection,Sterile 10 ML IV SCH (09:00)
--- NOTE | 2023-06-02 10:20 | NUR ---
Initial visit; Garage Laborer introduced herself to patient and her daughter and inquired as to how patient was doing this morning. Patient states she is feeling better than she did when she came in the hospital and thanked Garage Laborer for looking in on her. Garage Laborer spoke with her daughter, Merary and wished Marilou well and offered God's blessings.
--- NOTE | 2023-06-02 10:22 | NUR ---
Patient is resting in bed, alert and oriented x 4, getting 2.5 L o2 NC. Getting fluids per orders. Denies any pain or discomfort. Assessment completed, no further needs at this time. Call lght within reach.
--- NOTE | 2023-06-02 16:56 | NUR ---
direct care worker met with patient to discuss discharge planning. Patient reports she lives in [place] with her daughter, Mavis. P# [phone]. PCP is Dr. Gil, pharmacy is [facility]. No issues affording medications. [facility] is [facility]. Patient has oxygen that she uses at night, portable cannister and a cane. Patient is independent with ADLS and is able to transport herself to and from appointments. Patient would like to return home at time of discharge. Discharge plan: Home
[2023-06-03 00:10] VITALS: BP 134/61; PULSE 84; TEMP 98
[2023-06-03 04:38] VITALS: BP 137/63; PULSE 85; TEMP 98
[2023-06-03 05:00] VITALS: BP_SYST 137
--- NOTE | 2023-06-03 07:32 | NUR ---
Pt is A&O x4. Pt voided several times during the night. Pt denies any discomfort or pain during this shift. LFA INT has no edema or redness. On 2L of O2 per NC. Pt is on tele. All medications were given per emar. Belongings and call light are within reach.
[2023-06-03 08:18] VITALS: BP 135/84; PULSE 80; TEMP 97.5
[2023-06-03 08:55] LABS: BASO # 0.1 K/mm3 (0.0-0.2); BASO % 0.5 % (0.0-2.0); EOS # 0.3 K/mm3 (0.0-0.7); EOS % 2.5 % (0.0-4.0); GRAN # 8.1 K/mm3 (1.4-6.5); GRAN % 75.2 % (42.2-75.2); HEMOGLOBIN 10.3 g/dl (12.5-16.0); LYMPH # 1.2 K/mm3 (1.2-3.4); LYMPH % 10.8 % (20.0-51.0); MEAN CELL VOLUME 87 fl (80.0-100.0); MEAN CORPUSCULAR HEMOGLOBIN 28 pg (27-31); MEAN CORPUSCULAR HGB CONC 32 g/dl (33.0-37.0); MEAN PLATELET VOLUME 9.4 fl (7.4-10.4); MONO # 1.1 K/mm3 (0.1-0.6); MONO % 10.5 % (1.7-9.3); PLATELET COUNT 151 K/mm3 (130-400); RED BLOOD COUNT 3.65 M/mm3 (4.10-5.30); REDCELL DISTRIBUTION WIDTH-CV 15.3 % (11.5-14.5)
[2023-06-03 09:00] LABS: HEMATOCRIT 31.8 % (37.0-47.0)
[2023-06-03 09:09] LABS: CALCIUM 8.7 mg/dL (8.4-10.2); CREATININE, serum 0.84 mg/dL (0.57-1.11); POTASSIUM 4.4 mmol/L (3.5-4.5)
--- NOTE | 2023-06-03 09:48 | NUR ---
Bedside report recieved from AILYN Riggs. Pt is resting in bed at this time with no complaints. Call light within reach.
[2023-06-03 09:56] VITALS: BP_SYST 135
[2023-06-03] MEDS ORDERED: CEFTIN 250250 MG/TAB PO (11:24)
[2023-06-03 12:04] VITALS: BP 136/77; PULSE 88; TEMP 97.3
--- NOTE | 2023-06-03 12:49 | NUR ---
Discharge paperwork provided to patient. Pt verbalized understanding of discharge instructions. INT to Lt forearm discontinued with tip intact and pt tolerated well with no complications. Telemetry discontinued. This nurse assisted pt by wheelchair down to ED entrance into family car. Pt left facility with daughter.
[2023-06-05] MEDS ORDERED: DOXYCYCLINE HY100 MG PO (14:48)
== END 2023-06-03 12:30 | disposition home or self-care (01) | DRG 871 ==
LOC: COL.ER 10:36 → MEDICAL 12:11 → EDBEDREQ 13:56 → MEDICAL 23:00
PROVIDERS: Physician Assistant; ADMIT Hospitalist
DX: A41.9 Sepsis, unspecified organism (principal); I21.4 Non-ST elevation (NSTEMI) myocardial infarction; J96.01 Acute respiratory failure with hypoxia; N39.0 Urinary tract infection, site not specified; C85.90 Non-Hodgkin lymphoma, unspecified, unspecified site; I25.10 Atherosclerotic heart disease of native coronary artery without angina pectoris; Z95.5 Presence of coronary angioplasty implant and graft; E87.6 Hypokalemia; R42 Dizziness and giddiness; I10 Essential (primary) hypertension; E78.5 Hyperlipidemia, unspecified; E03.9 Hypothyroidism, unspecified; F32.A Depression, unspecified; G93.32 Myalgic encephalomyelitis/chronic fatigue syndrome; K44.9 Diaphragmatic hernia without obstruction or gangrene; R53.81 Other malaise; R53.1 Weakness
CPT/HCPCS: J0696; J1644; J3475; J7030; J7120

== ENCOUNTER → 2023-06-06 | Outpatient (CLI) | payer MEDICARE, BC ==
[~2023-06-06] MED LIST changes: +CEFTIN 250250 MG/TAB PO; +DOXYCYCLINE HY100 MG PO; +PROBIOTIC PEAR1 EAC3 PO; +TYLENOL 500MG500 MG PO; +WOMEN'S DAILY1 TAB PO
== END ==
LOC: COL.LAB 08:16
DX: B99.9 Unspecified infectious disease (principal)

== ENCOUNTER → 2023-12-11 | Outpatient (CLI) | payer MEDICARE, BC | LOC: COL.RAD 14:54 | DX: E04.1 Nontoxic single thyroid nodule (principal) ==

== ENCOUNTER 2024-01-30 09:00 | Emergency (ER) | payer MEDICARE, BC ==
[~2024-01-30] VITALS: Ht 152.4 cm; Wt 67.3 kg
[2024-01-30 09:04] VITALS: TEMP 98.4
[2024-01-30 09:29] LABS: BASO % 0.6 % (0.0-2.0); EOS # 0.2 K/mm3 (0.0-0.7); EOS % 2.4 % (0.0-4.0); GRAN % 45.7 % (42.2-75.2); HEMATOCRIT 38.1 % (37.0-47.0); HEMOGLOBIN 12.3 g/dl (12.5-16.0); LYMPH # 2.7 K/mm3 (1.2-3.4); LYMPH % 40.6 % (20.0-51.0); MEAN CELL VOLUME 91 fl (80.0-100.0); MEAN CORPUSCULAR HEMOGLOBIN 29 pg (27-31); MEAN CORPUSCULAR HGB CONC 32 g/dl (33.0-37.0); MEAN PLATELET VOLUME 9.3 fl (7.4-10.4); MONO # 0.7 K/mm3 (0.1-0.6); MONO % 10.4 % (1.7-9.3); PLATELET COUNT 260 K/mm3 (130-400); RED BLOOD COUNT 4.18 M/mm3 (4.10-5.30); REDCELL DISTRIBUTION WIDTH-CV 12.8 % (11.5-14.5)
[2024-01-30] MEDS ORDERED: NS 1,000 ML IV ONE (09:30)
[2024-01-30 10:14] LABS: ALANINE AMINOTRANSFERASE 12 U/L (0-55); ALBUMIN 3.8 g/dL (3.4-4.8); ALKALINE PHOSPHATASE 98 U/L (40-150); ANION GAP 12 mmol/L (7-16); AST,SGOT 19 U/L (5-34); BILIRUBIN,TOTAL 0.3 mg/dL (0.2-1.2); BLOOD UREA NITROGEN 24 mg/dL (10-20); CALCIUM 9.4 mg/dL (8.4-10.2); CHLORIDE 107 mEq/L (98-107); CREATININE, serum 0.97 mg/dL (0.57-1.11); GLUCOSE 91 mg/dL (70-99); LIPASE 47 U/L (8-78); POTASSIUM 4.4 mEq/L (3.5-4.5); SODIUM 140 mEq/L (136-145); TOTAL PROTEIN 6.7 g/dl (6.2-8.1)
[2024-01-30 10:17] LABS: TROPONIN-I < 0.010 ng/mL (0.00-0.033)
[2024-01-30 10:56] LABS: COLLECTION METHOD CATHETER
[2024-01-30 11:00] LABS: PH 6.5 (5.0-8.5); URINE APPEARANCE CLEAR (CLEAR/HAZY); URINE BLOOD NEGATIVE (NEGATIVE); URINE COLOR YELLOW (YELLOW); URINE GLUCOSE NEGATIVE (NEGATIVE); URINE KETONE NEGATIVE (NEGATIVE); URINE NITRATE NEGATIVE (NEGATIVE); URINE PROTEIN(semi-quant) NEGATIVE (NEGATIVE); URINE UROBILINOGEN 0.2 E.U/dL (0.2-1.0)
[2024-01-30 14:13] VITALS: BP 164/87; PULSE 73
== END 2024-01-30 14:13 ==
LOC: COL.ER 09:00
PROVIDERS: Personal Emergency Response Attendant
DX: K44.9 Diaphragmatic hernia without obstruction or gangrene (principal); R53.1 Weakness; R53.83 Other fatigue; Z91.040 Latex allergy status
CPT/HCPCS: J7030